=== PATIENT | female | born 1995 | race Caucasian/White ===

== ENCOUNTER 2023-10-31 22:39 | Emergency (ER) | payer OTHER, SELFPAY ==
--- NOTE | 2023-10-31 22:44 | ED.GENADULT ---
HPI - General Adult General Chief complaint: Abdominal Pain Stated complaint: Pelvic and lower back pain Time Seen by Provider: 10/31/23 22:41 Source: patient, RN notes reviewed and old records reviewed Mode of arrival: Ambulatory Limitations: no limitations History of Present Illness HPI narrative: This is a 28-year-old female with history of anxiety, depression, diabetes type 2, migraines, PCOS, endometriosis, prior kidney stones who presents with complaint of dysuria, sense of urgency and frequency with incomplete emptying, lower abdominal pain and bilateral flank pain right greater than left. Patient states she started having chills nausea vomiting earlier in the day. She is developed increased abdominal discomfort dysuria, urgency and frequency. She notes a little bit of discharge but states no vaginal bleeding. She states she has not had much in the way of bowel movements. Patient states she was able to eat some food today. No reported fevers but has felt hot and cold intermittently. No chest pain or shortness breath. Patient's home medications include Lexapro, hydroxyzine, metformin, , amitriptyline. She is allergic to Latuda and nickel. Surgeries include prior wisdom tooth extraction and right ovarian cyst removal. Does use tobacco, vapes, drinks alcohol few times a month, no recreational drugs. Primary care is at the [facility] on [facility]. She is accompanied by her spouse. Related Data Previous Rx's Medication Instructions Recorded cefixime 400 mg capsule 400 mg PO DAILY 10 days #10 caps 11/01/23 Allergies Allergy/AdvReac Type Severity Reaction Status Date / Time lurasidone [From Latuda] Allergy Hives Verified 10/31/23 22:50 nickel Allergy Verified 10/31/23 22:50 Review of Systems Review of Systems ROS Unobtainable: All systems reviewed & are unremarkable except as noted in HPI and below Patient History Social History Smoking Status: Current every day smoker Exam Narrative Exam Narrative: GENERAL: Alert and oriented x three, mild distress. HEENT: Head normocephalic, atraumatic, EOMI, pupils reactive, face symmetric, moist mucous membranes NECK: Supple, full range of motion CARDIOVASCULAR: Regular rate and rhythm without murmurs, rubs or gallops. RESPIRATORY: Breath sounds equal bilaterally, no wheezes rales or rhonchi. ABDOMEN: Soft, generalized tenderness. Normoactive bowel sounds all 4 quadrants. No guarding or rebound, rigidity, no mass : Bilateral CVA tenderness EXTREMITIES: Normal range of motion, no clubbing or edema. Neurovascularly intact NEUROLOGICAL: Cranial nerves II through XII grossly intact. Moving all extremities SKIN: Warm, dry, no petechiae, no rashes or lesions. Initial Vital Signs Initial Vital Signs: Vital Signs Temperature 97.5 F L 10/31/23 22:50 Pulse Rate 74 10/31/23 22:50 Respiratory Rate 16 10/31/23 22:50 Blood Pressure 132/61 10/31/23 22:50 Pulse Oximetry 99 10/31/23 22:50 Oxygen Delivery Method Room Air 10/31/23 22:50 Course Orders Ordered: ED Orders 10/31/23 22:50 Urine Culture Stat Urine Microscopic Stat 10/31/23 23:05 Complete Blood Count AUTO DIFF Stat Comprehensive Metabolic Panel Stat Lipase Stat 10/31/23 23:15 US renal complete Stat Discontinued Medications Sodium Chloride (Normal Saline 0.9%) 1,000 mls @ 1,000 mls/hr IV BOLUS ONE Stop: 10/31/23 23:55 Last Infusion: 11/01/23 00:08 Dose: Infused Documented By: Admin: 10/31/23 23:02 Dose: 1,000 mls/hr Documented By: JAMAL Ceftriaxone Sodium 1,000 mg/ (Sodium Chloride) 100 mls @ 200 mls/hr IV NOW ONE Stop: 10/31/23 23:51 Last Admin: 11/01/23 00:12 Dose: 200 mls/hr Documented By: Ondansetron HCl (Ondansetron 4 Mg/2 Ml Inj) 4 mg IV NOW ONE Stop: 10/31/23 22:57 Last Admin: 10/31/23 23:02 Dose: 4 mg Documented By: JAMAL Vital Signs Vital signs: Vital Signs - 8 hr 10/31/23 22:50 10/31/23 22:55 11/01/23 00:46 Temperature 97.5 F L Pulse Rate 74 75 76 Respiratory Rate 16 18 14 Blood Pressure 132/61 Pulse Oximetry 99 100 97 Oxygen Delivery Method Room Air Room Air 11/01/23 00:47 11/01/23 00:47 Temperature Pulse Rate 82 Respiratory Rate Blood Pressure 109/57 L Pulse Oximetry 98 Oxygen Delivery Method Room Air Medical Decision Making Lab Data 10/31/23 23:05 10/31/23 23:05 Labs: Lab Results 10/31/23 10/31/23 Range/Units 22:50 23:05 WBC 7.9 (4.5-11.0) X10^3/uL RBC 4.05 (4.0-5.2) X10^6/uL Hgb 12.3 (12.0-16.0) g/dL Hct 35.6 L (36-46) % MCV 88.0 (80-100) fL MCH 30.3 (26-34) PG MCHC 34.4 (30-36) % RDW 13.8 (11.6-14.8) % Plt Count 215 (150-400) X10^3/uL Neut % (Auto) 37.2 L (50-75) % Lymph % (Auto) 51.0 H (25-40) % Mitchell % (Auto) 5.4 (3-14) % Eos % (Auto) 5.9 H (2-4) % Baso % (Auto) 0.5 (0-2) % Neut # (Auto) 3000 (4269-8358) /uL Lymph # (Auto) 4000 (3045-9010) /uL Mitchell # (Auto) 400 (0-900) /uL Eos # (Auto) 500 H (0-450) /uL Baso # (Auto) 0 (0-100) /uL Sodium 138 (137-145) mmol/L Potassium 3.7 (3.4-5.1) mmol/L Chloride 107 (98-107) mmol/L Carbon Dioxide 26 (22-32) mmol/L BUN 8 (7-17) mg/dL Creatinine 0.60 (0.52-1.04) mg/dL Estimated GFR > 60 (>60) mL/min BUN/Creatinine Ratio 13.3 (6-22) Glucose 139 H (70-100) mg/dL Calcium 8.9 (8.4-10.2) mg/dL Total Bilirubin 0.2 (0.2-1.3) mg/dL AST 21 (14-36) IU/L ALT 24 (<35) IU/L Alkaline Phosphatase 54 (38-126) U/L Total Protein 7.1 (6.3-8.2) g/dL Albumin 4.0 (3.5-5.0) g/dL Globulin 3.1 (1.7-4.1) g/dL Albumin/Globulin Ratio 1.3 (1.0-2.8) Lipase 83 (23-300) U/L Urine RBC 0-1/hpf (0-5/HPF) Urine WBC 10-30/hpf H (0-5/HPF) Ur Squamous Epith Cells 5-10 /hpf H (0-5/HPF) Urine Bacteria Moderate (10-30) H (None) Urine Mucus 2+ H (Negative) Ur Culture Indicated? Specimen cultured Vol Urine Centrifuged 10ml (spun) Point of Care Testing Test Results Negative Urine Dip Bedside Urine Glucose Negative Bedside Urine Bilirubin - Negative Bedside Urine Ketone +/- 5 Urine Specific [place] 1.025 Bedside Urine Occult Blood - Negative Bedside Urine pH 6 Bedside Urine Protein - Negative Bedside Urine Urobilinogen - Negative Bedside Urine Nitrite - Negative Bedside Urine Leukocytes +/- 15 Esterase Point of care testing: Point of Care Testing Test Results Negative Urine Dip Bedside Urine Glucose Negative Bedside Urine Bilirubin - Negative Bedside Urine Ketone +/- 5 Urine Specific [place] 1.025 Bedside Urine Occult Blood - Negative Bedside Urine pH 6 Bedside Urine Protein - Negative Bedside Urine Urobilinogen - Negative Bedside Urine Nitrite - Negative Bedside Urine Leukocytes +/- 15 Esterase Imaging Data renal US: Radiologist's Impression: Close Renal Ultrasound (Signed) [place],Adamaris - 10/31/23 [address]?[place] [address] Ultrasound Report Signed Patient: Ysabel Bañuelos MR#: [id number] : 1995 Acct:[id number] Age/Sex: 28 / F Date of Service: 10/31/23 Loc: ED Accession Number: [id number] Procedure: US renal complete Ordering Provider: Emily Reynolds D.O. PROCEDURE: US RENAL COMPLETE INDICATIONS: urinary symptoms/flank pain, suspect pyelo, hx of kidney sto TECHNIQUE: Real-time scanning was performed of the kidneys and bladder, with image documentation. COMPARISON: None. FINDINGS: Kidneys: Kidneys are normal in size. Right kidney measures 10.6 cm long; left kidney measures 10.5 cm long. Right renal cortical thickness is 2.2 cm; left renal cortical thickness is 1.4 cm. Renal cortical echotexture is normal. No hydronephrosis or nephrolithiasis. No suspicious solid mass lesions. Bladder: Pre-void bladder volume is 24 mL. Post-void residual is 0 mL. Pre-void images demonstrate no intraluminal masses or stones. On pre-void images, bilateral ureteral jets are noted with color Doppler interrogation. (Of note, ureteral jets may not be detectable in up to 25% of cases due to insufficient differences in specific gravity between ureteral and bladder urine). Miscellaneous: No free pelvic fluid. IMPRESSION: No hydronephrosis or nephrolithiasis. Postvoid residual volume of 0 cc. Bilateral ureteral jets visualized. Approved by: Adamaris Hills M.D.,Ph.D. on 11/01/2023 at 0:25 MDM Narrative Medical decision making narrative: Patient [place] report viewed. Labs white count of 7.9 hemoglobin of 12.3 platelets of 215. Chemistries sodium 138 potassium 3 7 chloride of 107 CO2 26 BUN 8 and creatinine 0.6, glucose is 139 LFTs are normal range negative lipase. Urine is negative. Microscopy shows 0-1 RBCs 10-30 WBCs 5-10 squamous moderate bacteria 2+ mucus specimen sent for culture Patient received fluids and Zofran. She defers any pain medication. After discussion patient's symptoms seem consistent with likely UTI/pyelonephritis, she has had kidney stones in the past but has been blood. After discussion we will obtain renal ultrasound to rule out hydro. Ultrasound shows no hydro or nephrolithiasis, bilateral ureteral jets visualized, no pelvic free fluid. Patient received fluids, Zofran and Rocephin, patient states she feels improved discussed suspect likely pyelonephritis. We will continue with cefixime daily. Patient states she has Zofran at home. Discussed return precautions. Discharge Plan Departure Patient Disposition: Home Clinical Impression: Pyelonephritis Instructions: Kidney Infection Activity Restrictions/Additional Instructions: Follow up for recheck if your symptoms are not improving in the next 1-2 days. Take antibiotics until completed. You may take zofran 1 tablet every 6 hours as needed for nausea/vomiting. Prescription sent to [facility]. Please return for fevers, new or worsening abdominal back or flank pain, persistent vomiting, black or bloody stools or other new or concerning changes. Prescriptions: New cefixime 400 mg capsule 400 mg PO DAILY 10 Days Qty: 10 0RF Referrals: ProviderBryant [Primary Care Provider] - Stand Alone Forms: Patient Portal/API
[2023-10-31 22:50] VITALS: BP 132/61; PULSE 74; RESP 16; TEMP 36.4; O2SAT 99; BMI 32.2
[2023-10-31 22:55] VITALS: PULSE 75; RESP 18; O2SAT 100
[2023-10-31] MEDS: ONDANSETRON 4 MG/2 ML INJ IV (23:02)
[2023-10-31] MEDS: SODIUM CHLORIDE 0.9% 1,000 ML 1000 ML IV (23:02)
[2023-10-31 23:05] LABS: Bacteria Urine Moderate (10-30); Culture Indicated Urine Specimen Cultured; Mucus Urine 2+ (Negative); RBC Urine 0-1/HPF (0-5/HPF); Squamous Epithelial Cell Urine 5-10 /HPF (0-5/HPF); Urine Volume 10mL (spun); WBC Urine 10-30/HPF (0-5/HPF)
[2023-10-31 23:15] LABS: Add Manual Diff / Slide Review NO; Basophils Absolute Auto 0 /uL (0-100); Basophils Percent Auto 0.5 % (0-2); Eosinophils Absolute Auto 500 /uL (0-450); Eosinophils Percent Auto 5.9 % (2-4); Hematocrit 35.6 % (36-46); Hemoglobin 12.3 g/dL (12.0-16.0); Lymphocytes Absolute Auto 4000 /uL (1100-4500); Mean Corpuscular HGB Conc 34.4 % (30-36); Mean Corpuscular Hemoglobin 30.3 PG (26-34); Monocytes Absolute Auto 400 /uL (0-900); Monocytes Percent Auto 5.4 % (3-14); Neutrophils Absolute Auto 3000 /uL (1500-7000); Neutrophils Percent Auto 37.2 % (50-75); Platelet Count 215 X10^3/uL (150-400); Red Blood Cell Count 4.05 X10^6/uL (4.0-5.2); Red Cell Distribution Width 13.8 % (11.6-14.8); White Blood Cell Count 7.9 X10^3/uL (4.5-11.0)
--- NOTE | 2023-10-31 23:15 | DI.US.S_ITS ---
PROCEDURE: US RENAL COMPLETE INDICATIONS: urinary symptoms/flank pain, suspect pyelo, hx of kidney sto TECHNIQUE: Real-time scanning was performed of the kidneys and bladder, with image documentation. COMPARISON: None. FINDINGS: Kidneys: Kidneys are normal in size. Right kidney measures 10.6 cm long; left kidney measures 10.5 cm long. Right renal cortical thickness is 2.2 cm; left renal cortical thickness is 1.4 cm. Renal cortical echotexture is normal. No hydronephrosis or nephrolithiasis. No suspicious solid mass lesions. Bladder: Pre-void bladder volume is 24 mL. Post-void residual is 0 mL. Pre-void images demonstrate no intraluminal masses or stones. On pre-void images, bilateral ureteral jets are noted with color Doppler interrogation. (Of note, ureteral jets may not be detectable in up to 25% of cases due to insufficient differences in specific gravity between ureteral and bladder urine). Miscellaneous: No free pelvic fluid. IMPRESSION: No hydronephrosis or nephrolithiasis. Postvoid residual volume of 0 cc. Bilateral ureteral jets visualized. Approved by: Adamaris Hills M.D.,Ph.D. on 11/01/2023 at 0:25
[2023-10-31 23:25] LABS: Alanine Aminotransferase 24 IU/L (<35); Albumin Globulin Ratio 1.3 (1.0-2.8); Alkaline Phosphatase 54 U/L (38-126); Aspartate Aminotransferase 21 IU/L (14-36); BUN Creatinine Ratio 13.3 (6-22); Bilirubin Total 0.2 mg/dL (0.2-1.3); Blood Urea Nitrogen 8 mg/dL (7-17); Calcium 8.9 mg/dL (8.4-10.2); Carbon Dioxide 26 mmol/L (22-32); Chloride 107 mmol/L (98-107); Estimated Glomerular Filt Rate > 60 mL/min (>60); Globulin 3.1 g/dL (1.7-4.1); Glucose 139 mg/dL (70-100); HEMOLYSIS < 15 (0-50); Lipase 83 U/L (23-300); Potassium 3.7 mmol/L (3.4-5.1); Sodium 138 mmol/L (137-145); Total Protein 7.1 g/dL (6.3-8.2)
[2023-11-01] MEDS: cefTRIAXone 1,000 MG in SODIUM CHLORIDE 0.9% 100 ML 200 MG IV (00:12)
[2023-11-01 00:46] VITALS: PULSE 76; RESP 14; O2SAT 97
[2023-11-01 00:47] VITALS: BP 109/57; PULSE 82; O2SAT 98
== END 2023-11-01 00:53 | disposition home or self-care (01) ==
PROVIDERS: Emergency Provider Emergency Medicine
DX: N12 Tubulo-interstitial nephritis, not specified as acute or chronic (principal)
CPT/HCPCS: 76770; 80053; 81003; 81015; 81025; 83690; 85025; 87086; 96361; 96365; 96375; 99284; J0696; J2405

== ENCOUNTER 2023-11-12 23:43 | Emergency (ER) | payer OTHER, SELFPAY ==
[2023-11-12 23:56] VITALS: BP 117/78; PULSE 98; RESP 19; TEMP 36.4; O2SAT 100; BMI 32.8
--- NOTE | 2023-11-13 01:00 | PC.NURSE ---
pt c/o a boil to the side of her vagina, was seen at [facility] for the same and placed on antibiotics, pt c/o she has not been able to sit down d/t the pain, has been taking hot baths without relief
--- NOTE | 2023-11-13 01:36 | ED.SKABFB ---
HPI - Skin/Abscess/Foreign Bdy General Chief complaint: Skin/Abscess/Foreign Body Stated complaint: Perrenial cyst, very painful Time Seen by Provider: 11/13/23 00:33 Source: patient Mode of arrival: Ambulatory Limitations: no limitations History of Present Illness HPI narrative: 28-year-old female presents for evaluation an abscess in her vaginal region. Seen at [facility] 48 hours ago for same. Per record review it was believed that patient had a small Bartholin abscess, but she declined I and D and was sent home on Augmentin. She states it has become more painful and she can not even sit down without severe pain Related Data Previous Rx's Medication Instructions Recorded hydrocodone 5 mg-acetaminophen 325 1 tab PO Q8H PRN pain #7 tabs 11/13/23 mg tablet sulfamethoxazole 800 1 tab PO Q12H #14 tabs 11/13/23 mg-trimethoprim 160 mg tablet (Bactrim DS) Allergies Allergy/AdvReac Type Severity Reaction Status Date / Time lurasidone [From Latuda] Allergy Hives Verified 10/31/23 22:50 nickel Allergy Verified 10/31/23 22:50 Review of Systems Review of Systems Narrative: Negative except as noted above Patient History Social History Smoking Status: Current every day smoker Smoking Status: Current every day smoker tobacco type: vaping alcohol intake frequency: a few times a month Substance Use Type: does not use Exam Initial Vital Signs Initial Vital Signs: Vital Signs Temperature 97.6 F 11/12/23 23:56 Pulse Rate 98 H 11/12/23 23:56 Respiratory Rate 19 11/12/23 23:56 Blood Pressure 117/78 11/12/23 23:56 Pulse Oximetry 100 11/12/23 23:56 Oxygen Delivery Method Room Air 11/12/23 23:56 Const: Awake, alert, no acute distress, nontoxic appearing : [employer] present, draining Bartholin gland abscess at 5:00 position Skin: Warm, Dry, intact, no rashes Neuro: AO x3, CN II-XII grossly intact, moves all extremities Course Orders Ordered: Discontinued Medications Hydrocodone Bitart/Acetaminophen (Hydrocodone/Acet 5/325 Prepack) 1 bottle MISC DIRECTED ONE Stop: 11/13/23 01:37 Last Admin: 11/13/23 01:41 Dose: 1 bottle Vital Signs Vital signs: Vital Signs - 8 hr 11/12/23 23:56 Temperature 97.6 F Pulse Rate 98 H Respiratory Rate 19 Blood Pressure 117/78 Pulse Oximetry 100 Oxygen Delivery Method Room Air MDM - Skin/Abscess/Foreign Bdy Differential Diagnosis Differential diagnosis: Likely abscess of skin or subcutaneous tissue, urticaria and cellulitis MDM Narrative Medical decision making narrative: Bartholin gland abscess, appears to already be rupturing. Offered to perform formal I and D, however patient declined stating that she did not want any injections and would continue to do warm compresses at home. Patient was already on Augmentin, added Bactrim for additional coverage. Pain medication sent to pharmacy of choice. Discharge Plan Departure Patient Disposition: Home Clinical Impression: Abscess of Bartholin's gland Instructions: DI for Bartholin Gland Cyst Activity Restrictions/Additional Instructions: It appears as though your Bartholin abscess has ruptured spontaneously. Continue to do warm compresses and continue to take your antibiotics as prescribed. I will be adding 1 extra antibiotic to your regimen for full coverage. If it becomes more painful or stops draining you will need to have it Re looked at. You did not want me to incise this area today, but if it was not completely drain it may eventually need drainage. Please follow up with your primary care doctor or OBGYN. Prescriptions: New hydrocodone-acetaminophen 5-325 mg tablet 1 tab PO Q8H PRN (Reason: pain) Qty: 7 0RF sulfamethoxazole-trimethoprim [Bactrim DS] 800-160 mg tablet 1 tab PO Q12H Qty: 14 0RF Referrals: ProviderBryant [Primary Care Provider] - Stand Alone Forms: Patient Portal/API
== END 2023-11-13 01:58 | disposition home or self-care (01) ==
PROVIDERS: Emergency Provider Emergency Medicine
DX: N75.1 Abscess of Bartholin's gland (principal)
CPT/HCPCS: 99281

== ENCOUNTER 2023-11-16 20:24 | Emergency (ER) | payer OTHER, SELFPAY ==
[2023-11-16 20:36] VITALS: BP 109/66; PULSE 91; RESP 18; TEMP 36.5; O2SAT 100; BMI 32.5
--- NOTE | 2023-11-16 21:44 | DI.US.S_ITS ---
PROCEDURE: US PELVIC LIMITED INDICATIONS: R pelvic pain TECHNIQUE: Real-time transabdominal scanning was performed of the pelvic organs, with image documentation. COMPARISON: None. FINDINGS: Uterus: Uterus is anteverted and normal in size at 7.5 x 3.9 x 5.8 cm. The myometrium is homogeneous. The endometrium measures 7.9 mm combined thickness. Heterogeneous appearance of the endometrium. Ovaries: The right ovary measures 2.4 x 2.9 x 2.5 cm, with a calculated ovarian volume of 9.3 cc. Collapsing simple cyst within the right ovary measuring 1.8 cm. The left ovary measures 1.0 x 2.3 x 1.3 cm, with a calculated ovarian volume of 1.8 cc. The ovaries have a normal sonographic appearance. Less than 12 follicles can be seen in each ovary. No adnexal masses are seen. Other: No pathologic free abdominal or pelvic fluid. IMPRESSION: Normal vascularity to the ovaries. No evidence of torsion. Collapsing right ovarian simple cyst measuring 1.8 cm. No acute findings to explain patient's symptoms. We strive to produce accurate, complete, and clear reports of imaging services. To assist us in improving patient care, this report was composed using standard report templates and voice recognition software. Therefore, it may contain abnormal punctuation, insertions and/or omissions. Occasional wrong-word or sound-alike substitutions may occur. Though we review the report and make efforts to correct it, we do recommend that the report be read carefully in proper context to recognize any text inaccuracies. Dictated by: Adonis Recio M.D. on 11/16/2023 at 22:41 Approved by: Adonis Recio M.D. on 11/16/2023 at 22:43
--- NOTE | 2023-11-16 21:48 | ED.ABDPAIN ---
HPI - Abdominal Pain General Chief Complaint: Abdominal Pain Stated Complaint: lower mid abd pain Time Seen by Provider: 11/16/23 20:54 Mode of arrival: Ambulatory History of Present Illness HPI narrative: 28-year-old female with history of endometriosis, PCOS presents for right-sided pelvic pain. Pain is similar to ruptured cyst in the past, but slightly different. She states it was like a twisting, grinding pain with associated nausea. No medications taken at home prior to arrival. Patient is seen recently in our emergency department as well as [facility] for a Bartholin gland cyst. Patient states that the cyst has ruptured and is now resolved Related Data Previous Rx's Medication Instructions Recorded hydrocodone 5 mg-acetaminophen 325 1 tab PO Q8H PRN pain #7 tabs 11/13/23 mg tablet sulfamethoxazole 800 1 tab PO Q12H #14 tabs 11/13/23 mg-trimethoprim 160 mg tablet (Bactrim DS) Allergies Allergy/AdvReac Type Severity Reaction Status Date / Time hydrocodone Allergy Verified 11/16/23 20:36 lurasidone [From Latuda] Allergy Hives Verified 10/31/23 22:50 nickel Allergy Verified 10/31/23 22:50 Review of Systems Review of Systems Narrative: See HPI Patient History Social History Smoking Status: Current every day smoker Smoking Status: Current every day smoker tobacco type: vaping alcohol intake frequency: a few times a month Substance Use Type: former substance user Exam Initial Vital Signs Initial Vital Signs: Vital Signs Temperature 97.7 F 11/16/23 20:36 Pulse Rate 91 H 11/16/23 20:36 Respiratory Rate 18 11/16/23 20:36 Blood Pressure 109/66 11/16/23 20:36 Pulse Oximetry 100 11/16/23 20:36 Oxygen Delivery Method Room Air 11/16/23 20:36 Const: Awake, alert, no acute distress, nontoxic appearing GI: Soft, minimal tenderness to deep palpation in lower pelvic region on the right-hand side Skin: Warm, Dry, intact, no rashes Neuro: AO x3, CN II-XII grossly intact, moves all extremities Course Orders Ordered: ED Orders 11/16/23 21:44 US pelvic complete Stat 11/16/23 21:55 CBC Auto Diff [Complete Blood Count AUTO DIFF] Stat CMP [Comprehensive Metabolic Panel] Stat Discontinued Medications Ketorolac Tromethamine (Ketorolac 30 Mg/Ml Vial) 15 mg IV NOW ONE Stop: 11/16/23 21:45 Last Admin: 11/16/23 22:04 Dose: 15 mg Documented By: [facility]CA Metoclopramide HCl (Metoclopramide 10 Mg/2 Ml Inj) 10 mg IV NOW ONE Stop: 11/16/23 21:48 Ondansetron HCl (Ondansetron 4 Mg/2 Ml Inj) 4 mg IV NOW PRN PRN Reason: Nausea And Vomiting Ondansetron HCl (Ondansetron 4 Mg Odt) 4 mg SL NOW PRN PRN Reason: Nausea And Vomiting Vital Signs Vital signs: Vital Signs - 8 hr 11/16/23 20:36 11/16/23 23:06 Temperature 97.7 F Pulse Rate 91 H 78 Respiratory Rate 18 18 Blood Pressure 109/66 113/71 Pulse Oximetry 100 98 Oxygen Delivery Method Room Air Room Air MDM - Abdominal Pain Differential Diagnosis Differential diagnosis: Likely abdominal pain, endometriosis and gastroenteritis Lab Data 11/16/23 21:55 11/16/23 21:55 Labs: Lab Results 11/16/23 Range/Units 21:55 WBC 7.5 (4.5-11.0) X10^3/uL RBC 4.14 (4.0-5.2) X10^6/uL Hgb 12.3 (12.0-16.0) g/dL Hct 36.4 (36-46) % MCV 87.8 (80-100) fL MCH 29.6 (26-34) PG MCHC 33.7 (30-36) % RDW 13.5 (11.6-14.8) % Plt Count 207 (150-400) X10^3/uL Neut % (Auto) 45.9 L (50-75) % Lymph % (Auto) 45.4 H (25-40) % [place] % (Auto) 4.8 (3-14) % Eos % (Auto) 3.3 (2-4) % Baso % (Auto) 0.6 (0-2) % Neut # (Auto) 3500 (6162-5657) /uL Lymph # (Auto) 3400 (4572-9798) /uL [place] # (Auto) 400 (0-900) /uL Eos # (Auto) 200 (0-450) /uL Baso # (Auto) 0 (0-100) /uL Sodium 139 (137-145) mmol/L Potassium 3.4 (3.4-5.1) mmol/L Chloride 108 H (98-107) mmol/L Carbon Dioxide 25 (22-32) mmol/L BUN 10 (7-17) mg/dL Creatinine 0.63 (0.52-1.04) mg/dL Estimated GFR > 60 (>60) mL/min BUN/Creatinine Ratio 15.9 (6-22) Glucose 113 H (70-100) mg/dL Calcium 8.9 (8.4-10.2) mg/dL Total Bilirubin 0.3 (0.2-1.3) mg/dL AST 29 (14-36) IU/L ALT 34 (<35) IU/L Alkaline Phosphatase 60 (38-126) U/L Total Protein 7.1 (6.3-8.2) g/dL Albumin 4.5 (3.5-5.0) g/dL Globulin 2.6 (1.7-4.1) g/dL Albumin/Globulin Ratio 1.7 (1.0-2.8) Point of care testing: Point of Care Testing Test Results Negative Urine Dip Bedside Urine Glucose Negative Bedside Urine Bilirubin - Negative Bedside Urine Ketone - Negative Urine Specific [place] 1.02 Bedside Urine Occult Blood - Negative Bedside Urine pH 7 Bedside Urine Protein - Negative Bedside Urine Urobilinogen - Negative Bedside Urine Nitrite - Negative Bedside Urine Leukocytes - Negative Esterase Imaging Data US - CLIENT ACCOUNT MANAGER: Radiologist's Impression: PROCEDURE: US PELVIC LIMITED INDICATIONS: R pelvic pain TECHNIQUE: Real-time transabdominal scanning was performed of the pelvic organs, with image documentation. COMPARISON: None. FINDINGS: Uterus: Uterus is anteverted and normal in size at 7.5 x 3.9 x 5.8 cm. The myometrium is homogeneous. The endometrium measures 7.9 mm combined thickness. Heterogeneous appearance of the endometrium. Ovaries: The right ovary measures 2.4 x 2.9 x 2.5 cm, with a calculated ovarian volume of 9.3 cc. Collapsing simple cyst within the right ovary measuring 1.8 cm. The left ovary measures 1.0 x 2.3 x 1.3 cm, with a calculated ovarian volume of 1.8 cc. The ovaries have a normal sonographic appearance. Less than 12 follicles can be seen in each ovary. No adnexal masses are seen. Other: No pathologic free abdominal or pelvic fluid. IMPRESSION: Normal vascularity to the ovaries. No evidence of torsion. Collapsing right ovarian simple cyst measuring 1.8 cm. No acute findings to explain patient's symptoms. We strive to produce accurate, complete, and clear reports of imaging services. To assist us in improving patient care, this report was composed using standard report templates and voice recognition software. Therefore, it may contain abnormal punctuation, insertions and/or omissions. Occasional wrong-word or sound-alike substitutions may occur. Though we review the report and make efforts to correct it, we do recommend that the report be read carefully in proper context to recognize any text inaccuracies. Dictated by: Adonis Recio M.D. on 11/16/2023 at 22:41 Approved by: Adonis Recio M.D. on 11/16/2023 at 22:43 MDM Narrative Medical decision making narrative: Nontoxic patient with right lower pelvic pain. JENI form reports numerous visits at other sites for abdominal and pelvic pain. Abdomen is soft, no peritoneal signs, patient was not even attempted [id number] therapy before coming to the emergency department. Laboratory work and ultrasound imaging ordered. Toradol ordered for pain. Laboratory work is reviewed, no leukocytosis, no left shift, normal hemoglobin, normal creatinine, normal electrolytes, normal hepatic function. Urinalysis negative for signs of infection. Pelvic ultrasound shows a collapsing ovarian simple cyst but no other findings to explain patient's symptoms. Patient counseled on lab and imaging findings, recommended close OBGYN follow up. Patient states that she has a scheduled OBGYN appointment coming up within the next few weeks. Discharge Plan Departure Patient Disposition: Home Clinical Impression: Pelvic pain Instructions: DI for Pelvic Pain Activity Restrictions/Additional Instructions: Your ultrasound today showed a deflated right ovarian cyst. No other acute findings are present on your scans or on your labs. Take Tylenol and Motrin at home. Please follow up with OBGYN if you continue to experience pelvic pain Prescriptions: No Action hydrocodone-acetaminophen 5-325 mg tablet 1 tab PO Q8H PRN (Reason: pain) Qty: 7 0RF sulfamethoxazole-trimethoprim [Bactrim DS] 800-160 mg tablet 1 tab PO Q12H Qty: 14 0RF Referrals: Provider,Bryant CESAR [Primary Care Provider] - Stand Alone Forms: Patient Portal/API
[2023-11-16] MEDS: KETOROLAC 30 MG/ML VIAL 15 MG IV (22:04)
[2023-11-16 22:06] LABS: Add Manual Diff / Slide Review NO; Basophils Absolute Auto 0 /uL (0-100); Basophils Percent Auto 0.6 % (0-2); Eosinophils Absolute Auto 200 /uL (0-450); Eosinophils Percent Auto 3.3 % (2-4); Hematocrit 36.4 % (36-46); Hemoglobin 12.3 g/dL (12.0-16.0); Lymphocytes Absolute Auto 3400 /uL (1100-4500); Lymphocytes Percent Auto 45.4 % (25-40); Mean Corpuscular HGB Conc 33.7 % (30-36); Mean Corpuscular Hemoglobin 29.6 PG (26-34); Mean Corpuscular Volume 87.8 fL (80-100); Monocytes Absolute Auto 400 /uL (0-900); Monocytes Percent Auto 4.8 % (3-14); Neutrophils Absolute Auto 3500 /uL (1500-7000); Neutrophils Percent Auto 45.9 % (50-75); Platelet Count 207 X10^3/uL (150-400); Red Blood Cell Count 4.14 X10^6/uL (4.0-5.2); Red Cell Distribution Width 13.5 % (11.6-14.8); White Blood Cell Count 7.5 X10^3/uL (4.5-11.0)
[2023-11-16 22:15] LABS: Alanine Aminotransferase 34 IU/L (<35); Albumin 4.5 g/dL (3.5-5.0); Albumin Globulin Ratio 1.7 (1.0-2.8); Alkaline Phosphatase 60 U/L (38-126); Aspartate Aminotransferase 29 IU/L (14-36); BUN Creatinine Ratio 15.9 (6-22); Bilirubin Total 0.3 mg/dL (0.2-1.3); Blood Urea Nitrogen 10 mg/dL (7-17); Calcium 8.9 mg/dL (8.4-10.2); Carbon Dioxide 25 mmol/L (22-32); Chloride 108 mmol/L (98-107); Estimated Glomerular Filt Rate > 60 mL/min (>60); Globulin 2.6 g/dL (1.7-4.1); Glucose 113 mg/dL (70-100); HEMOLYSIS < 15 (0-50); Potassium 3.4 mmol/L (3.4-5.1); Sodium 139 mmol/L (137-145); Total Protein 7.1 g/dL (6.3-8.2)
[2023-11-16 23:06] VITALS: BP 113/71; PULSE 78; RESP 18; O2SAT 98
== END 2023-11-16 23:12 | disposition home or self-care (01) ==
PROVIDERS: Emergency Provider Emergency Medicine
DX: R10.2 Pelvic and perineal pain (principal)
CPT/HCPCS: 36415; 76830; 76856; 80053; 81003; 81025; 85025; 93976; 96374; 99284; J1885

== ENCOUNTER 2023-11-30 15:24 | Emergency (ER) | payer OTHER, SELFPAY ==
[2023-11-30] VITALS (9 sets, daily range): BP systolic 106–128; BP diastolic 58–73; PULSE 107–121; RESP 16–18; TEMP 37; O2SAT 95–100; BMI 32.2
--- NOTE | 2023-11-30 16:20 | DI.CT.S_ITS ---
PROCEDURE: CT ABDOMEN PELVIS W CON INDICATIONS: lower abd/pelvic pain TECHNIQUE: After the administration of intravenous contrast, axial sections acquired from the lung bases to the pubic symphysis. Coronal and sagittal reformats were performed. For radiation dose reduction, the following was used: automated exposure control, adjustment of mA and/or kV according to patient size. COMPARISON: None. FINDINGS: Image quality: Diagnostic. Lower Chest: No significant findings. ABDOMEN: Liver: No solid mass. Diffuse fatty liver infiltration is noted. Gallbladder: No radiopaque gallstones or wall thickening. Biliary ducts: No biliary dilation. Pancreas: No ductal dilation. Spleen: The spleen is mildly enlarged, measuring 13.5 cm in greatest axial dimension. Adrenal Glands: No adrenal nodules. Kidneys and Ureters: No hydronephrosis. No solid mass. No complex renal cystic lesion which requires follow up. Stomach and Bowel: Normal colonic caliber, without significant wall thickening. A normal appendix is seen. No focal right lower quadrant inflammatory change is seen. Peritoneum: No abnormal intraperitoneal fluid. No free air. Ventral Wall: No significant ventral hernia. Abdominal Nodes: No retroperitoneal or mesenteric adenopathy by size criteria. Vessels: Aorta and inferior vena cava are normal in size. PELVIS: Pelvic Organs: The uterus appears normal. Cystic changes are seen of the ovaries, which are considered to be within physiologic limits. Bladder: No bladder wall thickening, accounting for underdistention. Pelvic Nodes: No enlarged lymph nodes. Miscellaneous: No inguinal hernias are seen. Bones: No aggressive osseous abnormality. IMPRESSION: No imaging explanation is found for this patient's presenting symptoms. Normal appendix. Cystic changes are seen of the ovaries, which appear physiologic. Additional findings: Fatty liver infiltration Mild splenomegaly Dictated by: Bib Flores M.D. on 11/30/2023 at 18:23 Approved by: Bib Flores M.D. on 11/30/2023 at 18:25
--- NOTE | 2023-11-30 16:21 | DI.US.S_ITS ---
PROCEDURE: US PELVIC COMPLETE INDICATIONS: lower abd/pelvic pain TECHNIQUE: Real-time scanning was performed of the pelvic organs, with image documentation. Additional endovaginal scanning was necessary due to incomplete visualization of the adnexal and endometrial structures by transabdominal scanning. COMPARISON: [facility], US, US PELVIC COMPLETE, 11/16/2023, 22:22. FINDINGS: Uterus: Uterus is anteverted and normal in size at 8.0 x 4.3 x 4.9 cm. The myometrium is homogeneous. The endometrium measures 10 mm combined thickness. The endometrium is heterogeneous with several cystic spaces. No discrete endometrial mass. Ovaries: The right ovary measures 3.0 x 1.9 x 2.1 cm, with a calculated ovarian volume of 6.1 cc. The left ovary measures 3.8 x 3.8 x 3.0 cm, with a calculated ovarian volume of 24.3 cc. The ovaries have a normal sonographic appearance. There is a dominant follicle within each ovary, the larger on the left measures up to 2.5 cm. There is appropriate vascular flow in each ovary. No adnexal masses are seen. Other: No pathologic free abdominal or pelvic fluid. IMPRESSION: Normal size uterus with cystic endometrial changes, uncertain etiology given the patient's age. Consider follow-up ultrasound in 4-6 weeks at a different point in the patient's menstrual cycle. No explanation for acute abdominal pain. We strive to produce accurate, complete, and clear reports of imaging services. To assist us in improving patient care, this report was composed using standard report templates and voice recognition software. Therefore, it may contain abnormal punctuation, insertions and/or omissions. Occasional wrong-word or sound-alike substitutions may occur. Though we review the report and make efforts to correct it, we do recommend that the report be read carefully in proper context to recognize any text inaccuracies. Dictated by: Manisha Turner M.D. on 11/30/2023 at 17:36 Approved by: Manisha Turner M.D. on 11/30/2023 at 17:38
--- NOTE | 2023-11-30 17:04 | ED_ITS ---
HPI - Abdominal Pain <Alcira Mathis PA-C - Last Filed: 11/30/23 19:27> General Chief Complaint: Abdominal Pain Stated Complaint: PCOS vaginal bleeding, fever Time Seen by Provider: 11/30/23 16:02 Source: patient Mode of arrival: Wheelchair History of Present Illness HPI narrative: 28-year-old female with past medical history anxiety, depression, type 2 diabetes, migraines, PCOS, endometriosis, urolithiasis, seizures presents to the ED with 2 days of lower abdominal pain. Patient states that her abdominal pain started last night, got quite intense this morning. Patient was seen at a fertility clinic this morning for a consultation, was sent to the ED due to the abdominal pain. Patient has not yet had any fertility treatments. Patient endorses 10/10 lower abdominal pain, with nausea and 1 episode of vomiting. Patient endorses a subjective fever. Patient endorses frequent urination, no dysuria. Patient has had a history of ovarian cysts, had a cystectomy a few years ago. Patient reports that she saw some light vaginal spotting this morning. Patient last had a miscarriage of 2023. Patient has had multiple miscarriages. Patient also endorses daily seizures, had a seizure yesterday night. Patient is not on any anticonvulsants, is being currently evaluated and treated by a neurologist, states that he has mentioned that she might have pseudoseizures. She states that it is unclear the nature of her seizures. Patient's described her seizures as her moving all extremities, not being awake or responsive during the seizure. Patient does not have any recollection of the seizures. Patient states that her blood sugar has been low since the abdominal pain started. Patient reports a blood sugar of 34 last night. Patient takes metformin for the type 2 diabetes. Related Data Previous Rx's Medication Instructions Recorded hydrocodone 5 mg-acetaminophen 325 1 tab PO Q8H PRN pain #7 tabs 11/13/23 mg tablet sulfamethoxazole 800 1 tab PO Q12H #14 tabs 11/13/23 mg-trimethoprim 160 mg tablet (Bactrim DS) Allergies Allergy/AdvReac Type Severity Reaction Status Date / Time hydrocodone Allergy Verified 11/16/23 20:36 lurasidone [From Latuda] Allergy Hives Verified 10/31/23 22:50 nickel Allergy Verified 10/31/23 22:50 Review of Systems <Alcira Mathis PA-C - Last Filed: 11/30/23 19:27> Constitutional Constitutional: Denies chills, Denies fatigue, Denies fever(s), Denies frequent falls, Denies lethargy and Denies weakness Eyes Eyes: Denies change in vision, Denies eye discharge, Denies irritation and Denies loss of vision ENT Ears, Nose, Mouth, and Throat: Denies change in voice, Denies dizziness, Denies neck pain, Denies sore throat and Denies throat swelling Cardiovascular Cardiovascular: Denies chest pain, Denies irregular heart rhythm, Denies lightheadedness, Denies palpitations, Denies dyspnea, Denies dyspnea on exertion and Denies orthopnea Respiratory Respiratory: Denies cough, Denies dyspnea, Denies dyspnea on exertion and Denies wheezing Gastrointestinal Gastrointestinal: Reports abdominal pain, Denies change in bowel habits, Denies diarrhea, Reports nausea and Reports vomiting Genitourinary Genitourinary: Reports abnormal vaginal bleeding Comments: Urinary frequency Musculoskeletal Musculoskeletal: Denies neck pain and Denies numbness Integumentary/Breasts Skin/Breast: Denies pruritus, Denies erythema, Denies rash and Denies wounds Neurologic Neurologic: Denies behavioral changes, Denies confusion, Denies dizziness, Denies frequent falls, Denies loss of vision, Denies numbness and Denies weakness Psychiatric Psychiatric: Denies anxiety, Denies behavioral changes, Denies confusion, Denies depression, Denies homicidal ideation and Denies suicidal ideation Endocrine Endocrine: Denies fatigue, Denies flushing and Denies palpitations Hematologic/Lymphatic Hematologic/Lymphatic: Denies easy bruising Allergic/Immunologic Allergic/Immunologic: Denies urticaria, Denies throat swelling and Denies wheezing Patient History <Alcira Mathis PA-C - Last Filed: 11/30/23 19:27> Social History Smoking Status: Current every day smoker Smoking Status: Current every day smoker tobacco type: vaping alcohol intake frequency: a few times a month Substance Use Type: former substance user Exam <Alcira Mathis PA-C - Last Filed: 11/30/23 19:27> Narrative Exam Narrative: Const General:?cooperative, healthy appearing and comfortable HENMT Head:?normal to inspection Ears:?hearing grossly normal bilaterally Nose:?external nose normal Face and sinus:?normal facial exam and sinuses nontender Mouth:?oral mucosae normal Throat:?posterior oropharynx normal Eyes General:?appearance normal, both eyes and all related structures Neck Neck:?normal visual inspection and no lymphadenopathy noted Resp Effort & Inspection:?normal respiratory effort Auscultation:?clear to auscultation bilaterally Cardio Rate:?regular rate Rhythm:?regular rhythm GI Abdomen is soft, nondistended. Generalized tenderness to palpation, lower abdomen greater than upper abdomen. Neuro General:?patient alert, patient awake and patient oriented x3 Initial Vital Signs Initial Vital Signs: Vital Signs Temperature 98.6 F 11/30/23 15:28 Pulse Rate 119 H 11/30/23 15:28 Respiratory Rate 18 11/30/23 15:28 Blood Pressure 128/61 11/30/23 15:28 Pulse Oximetry 100 11/30/23 15:28 Oxygen Delivery Method Room Air 11/30/23 15:28 <Marquise Hart DO - Last Filed: 12/01/23 01:11> Initial Vital Signs Initial Vital Signs: Vital Signs Temperature 98.6 F 11/30/23 15:28 Pulse Rate 119 H 11/30/23 15:28 Respiratory Rate 18 11/30/23 15:28 Blood Pressure 128/61 11/30/23 15:28 Pulse Oximetry 100 11/30/23 15:28 Oxygen Delivery Method Room Air 11/30/23 15:28 Course <Alcira Mathis PA-C - Last Filed: 11/30/23 19:27> Orders Ordered: ED Orders 11/30/23 16:20 CT abdomen pelvis w con Stat 11/30/23 16:21 US pelvic complete Stat 11/30/23 17:00 CBC Auto Diff [Complete Blood Count AUTO DIFF] Stat CMP [Comprehensive Metabolic Panel] Stat ETOH [Ethanol (ETOH)] Stat Lactate (Lactic Acid) Stat Lipase Stat PT [Prothrombin Time INR] Stat PTT [PTT Partial Thromboplastin Josiah] Stat Discontinued Medications Sodium Chloride (Normal Saline 0.9%) 1,000 mls @ 1,000 mls/hr IV BOLUS ONE Stop: 11/30/23 18:41 Last Infusion: 11/30/23 18:50 Dose: Infused Documented By: Admin: 11/30/23 17:49 Dose: 1,000 mls/hr Documented By: CUCA Metoclopramide HCl (Metoclopramide 10 Mg/2 Ml Inj) 10 mg IV NOW ONE Stop: 11/30/23 20:19 Last Admin: 11/30/23 20:40 Dose: 10 mg Documented By: CUCA Morphine Sulfate (Morphine 4 Mg/Ml Inj) 4 mg IV NOW ONE Stop: 11/30/23 16:26 Last Admin: 11/30/23 17:13 Dose: 4 mg Documented By: CUCA Ondansetron HCl (Ondansetron 4 Mg Odt) 4 mg SL NOW PRN PRN Reason: Nausea And Vomiting Ondansetron HCl (Ondansetron 4 Mg/2 Ml Inj) 4 mg IV NOW PRN PRN Reason: Nausea And Vomiting Last Admin: 11/30/23 17:14 Dose: 4 mg Documented By: Admin: 11/30/23 17:13 Dose: 4 mg Documented By: CUCA Ondansetron HCl (Ondansetron 4 Mg/2 Ml Inj) 4 mg IV NOW ONE Stop: 11/30/23 19:31 Last Admin: 11/30/23 19:34 Dose: 4 mg Documented By: CUCA Ondansetron HCl (Ondansetron 4 Mg Odt Prepack) 1 bottle MISC DIRECTED ONE Stop: 11/30/23 21:01 Last Admin: 11/30/23 21:07 Dose: 1 bottle Documented By: CUCA Vital Signs Vital signs: Vital Signs - 8 hr 11/30/23 17:17 11/30/23 17:30 11/30/23 18:00 Pulse Rate 121 H 110 H 108 H Respiratory Rate 18 16 16 Blood Pressure 128/69 121/73 128/58 L Pulse Oximetry 98 97 98 Oxygen Delivery Method Room Air 11/30/23 18:30 11/30/23 19:00 11/30/23 19:54 Pulse Rate 107 H 110 H 120 H Respiratory Rate 16 16 18 Blood Pressure 116/59 L 111/59 L 120/61 Pulse Oximetry 100 100 95 Oxygen Delivery Method Room Air Room Air <Marquise Hart DO - Last Filed: 12/01/23 01:11> Orders Ordered: ED Orders 11/30/23 16:20 CT abdomen pelvis w con Stat 11/30/23 16:21 US pelvic complete Stat 11/30/23 17:00 CBC Auto Diff [Complete Blood Count AUTO DIFF] Stat CMP [Comprehensive Metabolic Panel] Stat ETOH [Ethanol (ETOH)] Stat Lactate (Lactic Acid) Stat Lipase Stat PT [Prothrombin Time INR] Stat PTT [PTT Partial Thromboplastin Josiah] Stat Discontinued Medications Sodium Chloride (Normal Saline 0.9%) 1,000 mls @ 1,000 mls/hr IV BOLUS ONE Stop: 11/30/23 18:41 Last Infusion: 11/30/23 18:50 Dose: Infused Documented By: Admin: 11/30/23 17:49 Dose: 1,000 mls/hr Documented By: CUCA Metoclopramide HCl (Metoclopramide 10 Mg/2 Ml Inj) 10 mg IV NOW ONE Stop: 11/30/23 20:19 Last Admin: 11/30/23 20:40 Dose: 10 mg Documented By: CUCA Morphine Sulfate (Morphine 4 Mg/Ml Inj) 4 mg IV NOW ONE Stop: 11/30/23 16:26 Last Admin: 11/30/23 17:13 Dose: 4 mg Documented By: CUCA Ondansetron HCl (Ondansetron 4 Mg Odt) 4 mg SL NOW PRN PRN Reason: Nausea And Vomiting Ondansetron HCl (Ondansetron 4 Mg/2 Ml Inj) 4 mg IV NOW PRN PRN Reason: Nausea And Vomiting Last Admin: 11/30/23 17:14 Dose: 4 mg Documented By: Admin: 11/30/23 17:13 Dose: 4 mg Documented By: CUCA Ondansetron HCl (Ondansetron 4 Mg/2 Ml Inj) 4 mg IV NOW ONE Stop: 11/30/23 19:31 Last Admin: 11/30/23 19:34 Dose: 4 mg Documented By: CUCA Ondansetron HCl (Ondansetron 4 Mg Odt Prepack) 1 bottle MISC DIRECTED ONE Stop: 11/30/23 21:01 Last Admin: 11/30/23 21:07 Dose: 1 bottle Documented By: CUCA Vital Signs Vital signs: Vital Signs - 8 hr 11/30/23 17:17 11/30/23 17:30 11/30/23 18:00 Pulse Rate 121 H 110 H 108 H Respiratory Rate 18 16 16 Blood Pressure 128/69 121/73 128/58 L Pulse Oximetry 98 97 98 Oxygen Delivery Method Room Air 11/30/23 18:30 11/30/23 19:00 11/30/23 19:54 Pulse Rate 107 H 110 H 120 H Respiratory Rate 16 16 18 Blood Pressure 116/59 L 111/59 L 120/61 Pulse Oximetry 100 100 95 Oxygen Delivery Method Room Air Room Air MDM - Abdominal Pain <Ileanaa FANY Mathis - Last Filed: 11/30/23 19:27> Lab Data 11/30/23 17:00 11/30/23 17:00 Labs: Lab Results 11/30/23 Range/Units 17:00 WBC 7.4 (4.5-11.0) X10^3/uL RBC 4.23 (4.0-5.2) X10^6/uL Hgb 12.6 (12.0-16.0) g/dL Hct 37.0 (36-46) % MCV 87.4 (80-100) fL MCH 29.8 (26-34) PG MCHC 34.1 (30-36) % RDW 13.4 (11.6-14.8) % Plt Count 185 (150-400) X10^3/uL Neut % (Auto) 77.6 H (50-75) % Lymph % (Auto) 17.3 L (25-40) % Montague % (Auto) 3.2 (3-14) % Eos % (Auto) 1.5 L (2-4) % Baso % (Auto) 0.4 (0-2) % Neut # (Auto) 5800 (2627-7742) /uL Lymph # (Auto) 1300 (4339-0447) /uL [place] # (Auto) 200 (0-900) /uL Eos # (Auto) 100 (0-450) /uL Baso # (Auto) 0 (0-100) /uL PT 12.7 H (9.4-12.5) SECONDS INR 1.1 (0.9-1.3) APTT 38 H (25.1-36.5) SECONDS Sodium 138 (137-145) mmol/L Potassium 4.0 (3.4-5.1) mmol/L Chloride 108 H (98-107) mmol/L Carbon Dioxide 22 (22-32) mmol/L BUN 8 (7-17) mg/dL Creatinine 0.66 (0.52-1.04) mg/dL Estimated GFR > 60 (>60) mL/min BUN/Creatinine Ratio 12.1 (6-22) Glucose 94 (70-100) mg/dL Lactate 2.5 H (0.7-2.1) mmol/L Calcium 9.4 (8.4-10.2) mg/dL Total Bilirubin 0.5 (0.2-1.3) mg/dL AST 28 (14-36) IU/L ALT 32 (<35) IU/L Alkaline Phosphatase 59 (38-126) U/L Total Protein 7.8 (6.3-8.2) g/dL Albumin 4.9 (3.5-5.0) g/dL Globulin 2.9 (1.7-4.1) g/dL Albumin/Globulin Ratio 1.7 (1.0-2.8) Lipase 81 (23-300) U/L Ethyl Alcohol < 10 ( - 10) mg/dL Point of care testing: Point of Care Testing Test Results Negative Glucose POC 81 Urine Dip Bedside Urine Glucose Negative Bedside Urine Bilirubin - Negative Bedside Urine Ketone - Negative Urine Specific Mccleary 1.015 Bedside Urine Occult Blood - Negative Bedside Urine pH 7.5 Bedside Urine Protein - Negative Bedside Urine Urobilinogen - Negative Bedside Urine Nitrite - Negative Bedside Urine Leukocytes - Negative Esterase MDM Narrative Medical decision making narrative: 28-year-old female with past medical history anxiety, depression, type 2 diabetes, migraines, PCOS, endometriosis, urolithiasis, seizures presents to the ED with 2 days of lower abdominal pain. Concern for versus ectopic versus ruptured ovarian cyst versus ovarian torsion versus endometrial serous appendicitis versus other intra-abdominal pathology versus other. Will obtain labs, UA, CT abdomen pelvis, ultrasound pelvis. Will give Zofran, morphine for symptoms. Urine negative for , negative for infection. Pelvic ultrasound without acute findings. Lactate elevated to 2.5. All other labs within normal limits. Patient was given a bolus of IV fluids. Will recheck lactate. CT scan is still pending. Patient has been signed out to Dr. Hart at this time. <Marquise Hart, - Last Filed: 12/01/23 01:11> Lab Data Labs: Lab Results 11/30/23 Range/Units 17:00 WBC 7.4 (4.5-11.0) X10^3/uL RBC 4.23 (4.0-5.2) X10^6/uL Hgb 12.6 (12.0-16.0) g/dL Hct 37.0 (36-46) % MCV 87.4 (80-100) fL MCH 29.8 (26-34) PG MCHC 34.1 (30-36) % RDW 13.4 (11.6-14.8) % Plt Count 185 (150-400) X10^3/uL Neut % (Auto) 77.6 H (50-75) % Lymph % (Auto) 17.3 L (25-40) % Montague % (Auto) 3.2 (3-14) % Eos % (Auto) 1.5 L (2-4) % Baso % (Auto) 0.4 (0-2) % Neut # (Auto) 5800 (7281-7239) /uL Lymph # (Auto) 1300 (7683-4914) /uL Montague # (Auto) 200 (0-900) /uL Eos # (Auto) 100 (0-450) /uL Baso # (Auto) 0 (0-100) /uL PT 12.7 H (9.4-12.5) SECONDS INR 1.1 (0.9-1.3) APTT 38 H (25.1-36.5) SECONDS Sodium 138 (137-145) mmol/L Potassium 4.0 (3.4-5.1) mmol/L Chloride 108 H (98-107) mmol/L Carbon Dioxide 22 (22-32) mmol/L BUN 8 (7-17) mg/dL Creatinine 0.66 (0.52-1.04) mg/dL Estimated GFR > 60 (>60) mL/min BUN/Creatinine Ratio 12.1 (6-22) Glucose 94 (70-100) mg/dL Lactate 2.5 H (0.7-2.1) mmol/L Calcium 9.4 (8.4-10.2) mg/dL Total Bilirubin 0.5 (0.2-1.3) mg/dL AST 28 (14-36) IU/L ALT 32 (<35) IU/L Alkaline Phosphatase 59 (38-126) U/L Total Protein 7.8 (6.3-8.2) g/dL Albumin 4.9 (3.5-5.0) g/dL Globulin 2.9 (1.7-4.1) g/dL Albumin/Globulin Ratio 1.7 (1.0-2.8) Lipase 81 (23-300) U/L Ethyl Alcohol < 10 ( - 10) mg/dL Point of care testing: Point of Care Testing Test Results Negative Glucose POC 81 Urine Dip Bedside Urine Glucose Negative Bedside Urine Bilirubin - Negative Bedside Urine Ketone - Negative Urine Specific Mccleary 1.015 Bedside Urine Occult Blood - Negative Bedside Urine pH 7.5 Bedside Urine Protein - Negative Bedside Urine Urobilinogen - Negative Bedside Urine Nitrite - Negative Bedside Urine Leukocytes - Negative Esterase MDM Narrative Medical decision making narrative: 28-year-old female with past medical history anxiety, depression, type 2 diabetes, migraines, PCOS, endometriosis, urolithiasis, seizures presents to the ED with 2 days of lower abdominal pain. Concern for versus ectopic versus ruptured ovarian cyst versus ovarian torsion versus endometrial serous appendicitis versus other intra-abdominal pathology versus other. Will obtain labs, UA, CT abdomen pelvis, ultrasound pelvis. Will give Zofran, morphine for symptoms. Urine negative for , negative for infection. Pelvic ultrasound without acute findings. Lactate elevated to 2.5. All other labs within normal limits. Patient was given a bolus of IV fluids. Will recheck lactate. CT scan is still pending. Patient has been signed out to Dr. Hart at this time. Dr hart: Received turned over. Review patient's history and physical and workup. CT scan shows no acute pathology. She was able to tolerate a small amount of oral intake after nausea medication here in the ER. There was no indication for antibiotics. No indication for acute surgical consultation. No indication for admission to the hospital. Recommended that she contact your primary doctor for follow-up. Discharge Plan Departure Patient Disposition: Home Clinical Impression: Abdominal pain Instructions: DI for Abdominal Pain-Adult Activity Restrictions/Additional Instructions: Recommend that you contact your primary care doctor for a follow-up. Continue to take any medications as directed. I recommend a bland diet. Return to the emergency department for new symptoms. Prescriptions: No Action hydrocodone-acetaminophen 5-325 mg tablet 1 tab PO Q8H PRN (Reason: pain) Qty: 7 0RF sulfamethoxazole-trimethoprim [Bactrim DS] 800-160 mg tablet 1 tab PO Q12H Qty: 14 0RF Referrals: ProviderBryant [Primary Care Provider] - Stand Alone Forms: Patient Portal/API
[2023-11-30] MEDS: MORPHINE 4 MG/ML INJ IV (17:13)
[2023-11-30] MEDS: ONDANSETRON 4 MG/2 ML INJ IV ×3 (17:13→19:34)
[2023-11-30 17:25] LABS: Add Manual Diff / Slide Review NO; Basophils Absolute Auto 0 /uL (0-100); Basophils Percent Auto 0.4 % (0-2); Eosinophils Absolute Auto 100 /uL (0-450); Eosinophils Percent Auto 1.5 % (2-4); Hemoglobin 12.6 g/dL (12.0-16.0); Lymphocytes Absolute Auto 1300 /uL (1100-4500); Lymphocytes Percent Auto 17.3 % (25-40); Mean Corpuscular HGB Conc 34.1 % (30-36); Mean Corpuscular Hemoglobin 29.8 PG (26-34); Mean Corpuscular Volume 87.4 fL (80-100); Monocytes Absolute Auto 200 /uL (0-900); Monocytes Percent Auto 3.2 % (3-14); Neutrophils Absolute Auto 5800 /uL (1500-7000); Neutrophils Percent Auto 77.6 % (50-75); Platelet Count 185 X10^3/uL (150-400); Red Blood Cell Count 4.23 X10^6/uL (4.0-5.2); Red Cell Distribution Width 13.4 % (11.6-14.8); White Blood Cell Count 7.4 X10^3/uL (4.5-11.0)
[2023-11-30 17:31] LABS: INR 1.1 (0.9-1.3); Prothrombin Time 12.7 SECONDS (9.4-12.5)
[2023-11-30 17:34] LABS: PTT Partial Thromboplastin Tim 38 SECONDS (25.1-36.5)
[2023-11-30 17:38] LABS: Alanine Aminotransferase 32 IU/L (<35); Albumin 4.9 g/dL (3.5-5.0); Albumin Globulin Ratio 1.7 (1.0-2.8); Alkaline Phosphatase 59 U/L (38-126); Aspartate Aminotransferase 28 IU/L (14-36); BUN Creatinine Ratio 12.1 (6-22); Bilirubin Total 0.5 mg/dL (0.2-1.3); Blood Urea Nitrogen 8 mg/dL (7-17); Calcium 9.4 mg/dL (8.4-10.2); Carbon Dioxide 22 mmol/L (22-32); Chloride 108 mmol/L (98-107); Estimated Glomerular Filt Rate > 60 mL/min (>60); Globulin 2.9 g/dL (1.7-4.1); Glucose 94 mg/dL (70-100); HEMOLYSIS < 15 (0-50); Lipase 81 U/L (23-300); Sodium 138 mmol/L (137-145); Total Protein 7.8 g/dL (6.3-8.2)
[2023-11-30 17:39] LABS: Lactate (Lactic Acid) 2.5 mmol/L (0.7-2.1)
[2023-11-30] MEDS: SODIUM CHLORIDE 0.9% 1,000 ML 1000 ML IV (17:49)
[2023-11-30 18:55] LABS: Reflexed Lactate in 2 Hours Y
[2023-11-30 19:20] LABS: Ethanol (ETOH) < 10 mg/dL
[2023-11-30] MEDS: METOCLOPRAMIDE 10 MG/2 ML INJ IV (20:40)
[2023-11-30] MEDS: ONDANSETRON 4 MG ODT PREPACK 1 BOTTLE MISC (21:07)
== END 2023-11-30 21:08 | disposition home or self-care (01) ==
PROVIDERS: Emergency Provider Student in an Organized Health Care Education/Training Program
DX: R10.30 Lower abdominal pain, unspecified (principal); R11.2 Nausea with vomiting, unspecified
CPT/HCPCS: 36415; 74177; 76856; 80053; 80320; 81003; 81025; 82962; 83605; 83690; 85025; 85610; 85730; 96361; 96374; 96375; 96376; 99284; J2270; J2405; J2765; Q9967

== ENCOUNTER 2024-04-25 19:55 | Emergency (ER) | payer OTHER, SELFPAY ==
[2024-04-25] VITALS (9 sets, daily range): BP systolic 101–119; BP diastolic 56–74; PULSE 73–90; RESP 16; TEMP 36.2; O2SAT 96–97; BMI 29.9
[2024-04-25 20:34] LABS: Add Manual Diff / Slide Review NO; Basophils Absolute Auto 100 /uL (0-100); Basophils Percent Auto 0.5 % (0-2); Eosinophils Absolute Auto 200 /uL (0-450); Eosinophils Percent Auto 1.6 % (2-4); Hematocrit 37.1 % (36-46); Hemoglobin 12.5 g/dL (12.0-16.0); Lymphocytes Absolute Auto 3800 /uL (1100-4500); Lymphocytes Percent Auto 40.4 % (25-40); Mean Corpuscular HGB Conc 33.8 % (30-36); Mean Corpuscular Hemoglobin 27.9 PG (26-34); Mean Corpuscular Volume 82.6 fL (80-100); Monocytes Absolute Auto 600 /uL (0-900); Monocytes Percent Auto 6.2 % (3-14); Neutrophils Absolute Auto 4800 /uL (1500-7000); Neutrophils Percent Auto 51.3 % (50-75); Platelet Count 221 X10^3/uL (150-400); Red Blood Cell Count 4.48 X10^6/uL (4.0-5.2); Red Cell Distribution Width 13.8 % (11.6-14.8); White Blood Cell Count 9.4 X10^3/uL (4.5-11.0)
[2024-04-25 20:44] LABS: Alanine Aminotransferase 24 IU/L (<35); Albumin 4.4 g/dL (3.5-5.0); Albumin Globulin Ratio 1.3 (1.0-2.8); Alkaline Phosphatase 52 U/L (38-126); Aspartate Aminotransferase 25 IU/L (14-36); BUN Creatinine Ratio 17.5 (6-22); Bilirubin Total 0.3 mg/dL (0.2-1.3); Blood Urea Nitrogen 10 mg/dL (7-17); Calcium 9.4 mg/dL (8.4-10.2); Carbon Dioxide 28 mmol/L (22-32); Chloride 100 mmol/L (98-107); Estimated Glomerular Filt Rate > 60 mL/min (>60); Globulin 3.3 g/dL (1.7-4.1); Glucose 166 mg/dL (70-100); HEMOLYSIS < 15 (0-50); Lipase 67 U/L (23-300); Potassium 3.8 mmol/L (3.4-5.1); Sodium 135 mmol/L (137-145); Total Protein 7.7 g/dL (6.3-8.2)
[2024-04-25 20:58] LABS: Appearance Urine UA CLEAR; Bilirubin Urine UA NEGATIVE (NEGATIVE); Color Urine UA YELLOW; Glucose Urine UA TRACE g/dL (Negative); Ketones Urine UA TRACE (NEGATIVE); Leukocyte Esterase Urine UA NEGATIVE (NEGATIVE); Nitrite Urine UA NEGATIVE (Negative); Occult Blood Urine UA NEGATIVE (Negative); Protein Urine UA NEGATIVE (Negative); Specific Gravity Urine UA >=1.030 (1.000-1.035); Urobilinogen Urine UA 0.2 E.U./dL (0.2)
[2024-04-25 21:09] LABS: Ictotest Urine Negative (Negative)
[2024-04-25 21:15] LABS: Amorphous Sediment Urine 2+; Bacteria Urine None Seen; Culture Indicated Urine Cult Not Indicated; RBC Urine None Seen (0-5/HPF); Squamous Epithelial Cell Urine 0-1 /HPF (0-5/HPF); Urine Volume 10mL (spun); WBC Urine None Seen (0-5/HPF)
--- NOTE | 2024-04-25 22:29 | ED_ITS ---
HPI - Abdominal Pain General Chief Complaint: Abdominal Pain Stated Complaint: rt sided pelvic pain, abd pain (stabbing) Time Seen by Provider: 04/25/24 22:29 Source: patient Mode of arrival: Ambulatory History of Present Illness HPI narrative: 29-year-old female currently having evaluation at [facility] infertility clinic, just underwent diagnostic hysterosalpingogram at [facility] on 04/12/2024, results pending with follow up infertility clinic, complains of right lower quadrant discomfort last few days. No fevers or chills. She has had some loose stools, no black or red stools. Some nausea without emesis. No injury trauma or new activities. No vaginal discharge. Related Data Previous Rx's Medication Instructions Recorded hydrocodone 5 mg-acetaminophen 325 1 tab PO Q8H PRN pain #7 tabs 11/13/23 mg tablet sulfamethoxazole 800 1 tab PO Q12H #14 tabs 11/13/23 mg-trimethoprim 160 mg tablet (Bactrim DS) Allergies Allergy/AdvReac Type Severity Reaction Status Date / Time hydrocodone Allergy Do not Verified 04/25/24 20:07 prescribe nickel Allergy Anaphylaxis Verified 04/25/24 20:07 lurasidone [From Latuda] AdvReac Hives Verified 04/25/24 20:07 Review of Systems Review of Systems Narrative: see HPI Patient History Social History Smoking Status: Current every day smoker Smoking Status: Current every day smoker tobacco type: vaping alcohol intake frequency: a few times a month Substance Use Type: former substance user Exam Narrative Exam Narrative: GENERAL: Well-developed patient, in mild distress. HEAD: Atraumatic. Normocephalic. EYES: Pupils equal round and reactive. Extraocular motions intact. No scleral icterus. No injection or drainage. ENT: Nose without bleeding, purulent drainage. Throat without erythema, tonsillar hypertrophy or exudate. Airway patent. NECK: Trachea midline. Non tender CARDIOVASCULAR: Regular rate and rhythm without murmurs, gallops, or rubs. RESPIRATORY: Clear to auscultation. Breath sounds equal bilaterally. No wheezes, rales, or rhonchi. GASTROINTESTINAL: Some tenderness right lower quadrant, no guarding or rebound, nondistended. EXTREMITIES: No edema or joint tenderness. BACK: Nontender without deformity or crepitance. No flank tenderness. NEURO: AOx3. Motor functions grossly nonfocal SKIN: No rash or erythema of visible areas Initial Vital Signs Initial Vital Signs: Vital Signs Temperature 97.2 F L 04/25/24 20:07 Pulse Rate 90 04/25/24 20:07 Respiratory Rate 16 04/25/24 20:07 Blood Pressure 119/74 04/25/24 20:07 Pulse Oximetry 96 04/25/24 20:07 Oxygen Delivery Method Room Air 04/25/24 20:07 Course Orders Ordered: ED Orders 04/25/24 20:25 Complete Blood Count AUTO DIFF Stat Comprehensive Metabolic Panel Stat Ictotest Urine Stat Lipase Stat Urinalysis and Microscopic Stat 04/25/24 22:43 US pelvic complete Stat Discontinued Medications Ketorolac Tromethamine (Ketorolac 30 Mg/Ml Vial) 15 mg IV NOW ONE Stop: 04/25/24 22:40 Last Admin: 04/25/24 22:44 Dose: 15 mg Documented By: TREY Ondansetron HCl (Ondansetron 4 Mg/2 Ml Inj) 4 mg IV NOW PRN PRN Reason: Nausea And Vomiting Ondansetron HCl (Ondansetron 4 Mg Odt) 4 mg PO NOW PRN PRN Reason: Nausea And Vomiting Vital Signs Vital signs: Vital Signs - 8 hr 04/25/24 20:07 04/25/24 22:31 04/25/24 22:33 Temperature 97.2 F L Pulse Rate 90 85 Respiratory Rate 16 Blood Pressure 119/74 110/65 Pulse Oximetry 96 97 Oxygen Delivery Method Room Air Room Air 04/25/24 22:50 04/25/24 22:50 04/25/24 23:00 Temperature Pulse Rate 73 Respiratory Rate Blood Pressure 113/68 105/61 Pulse Oximetry 97 Oxygen Delivery Method 04/25/24 23:00 04/25/24 23:20 04/25/24 23:30 Temperature Pulse Rate 77 82 Respiratory Rate Blood Pressure 101/57 L Pulse Oximetry 97 97 Oxygen Delivery Method Room Air 04/25/24 23:36 04/25/24 23:41 Temperature Pulse Rate 77 Respiratory Rate Blood Pressure 103/56 L Pulse Oximetry 97 Oxygen Delivery Method MDM - Abdominal Pain Lab Data Attestation: I reviewed the patient's lab results. 04/25/24 20:25 04/25/24 20:25 Labs: Lab Results 04/25/24 Range/Units 20:25 WBC 9.4 (4.5-11.0) X10^3/uL RBC 4.48 (4.0-5.2) X10^6/uL Hgb 12.5 (12.0-16.0) g/dL Hct 37.1 (36-46) % MCV 82.6 (80-100) fL MCH 27.9 (26-34) PG MCHC 33.8 (30-36) % RDW 13.8 (11.6-14.8) % Plt Count 221 (150-400) X10^3/uL Neut % (Auto) 51.3 (50-75) % Lymph % (Auto) 40.4 H (25-40) % [place] % (Auto) 6.2 (3-14) % Eos % (Auto) 1.6 L (2-4) % Baso % (Auto) 0.5 (0-2) % Neut # (Auto) 4800 (5170-5543) /uL Lymph # (Auto) 3800 (9204-4816) /uL [place] # (Auto) 600 (0-900) /uL Eos # (Auto) 200 (0-450) /uL Baso # (Auto) 100 (0-100) /uL Sodium 135 L (137-145) mmol/L Potassium 3.8 (3.4-5.1) mmol/L Chloride 100 (98-107) mmol/L Carbon Dioxide 28 (22-32) mmol/L BUN 10 (7-17) mg/dL Creatinine 0.57 (0.52-1.04) mg/dL Estimated GFR > 60 (>60) mL/min BUN/Creatinine Ratio 17.5 (6-22) Glucose 166 H (70-100) mg/dL Calcium 9.4 (8.4-10.2) mg/dL Total Bilirubin 0.3 (0.2-1.3) mg/dL AST 25 (14-36) IU/L ALT 24 (<35) IU/L Alkaline Phosphatase 52 (38-126) U/L Total Protein 7.7 (6.3-8.2) g/dL Albumin 4.4 (3.5-5.0) g/dL Globulin 3.3 (1.7-4.1) g/dL Albumin/Globulin Ratio 1.3 (1.0-2.8) Lipase 67 (23-300) U/L Urine Color Yellow Urine Appearance Clear Urine pH 5.0 (4.5-8.0) Ur Specific [place]ridge >=1.030 H (1.000-1.035) Urine Protein Negative (Negative) Urine Glucose (UA) Trace H (Negative) g/dL Urine Ketones Trace H (NEGATIVE) Urine Occult Blood Negative (Negative) Urine Nitrate Negative (Negative) Urine Bilirubin Negative (NEGATIVE) Ur Bilirubin Confirm Negative (Negative) Urine Urobilinogen 0.2 (0.2) E.U./dL Ur Leukocyte Esterase Negative (NEGATIVE) Urine RBC None seen (0-5/HPF) Urine WBC None seen (0-5/HPF) Ur Squamous Epith Cells 0-1 /hpf (0-5/HPF) Amorphous Sediment 2+ Urine Bacteria None seen (None) Ur Culture Indicated? Cult not indicated Vol Urine Centrifuged 10ml (spun) Point of care testing: Point of Care Testing Test Results Negative Urine Dip Bedside Urine Glucose Negative Bedside Urine Bilirubin + 1 Bedside Urine Ketone +/- 5 Urine Specific [place] 1.030 Bedside Urine pH 5.0 Bedside Urine Protein +/- 15 Bedside Urine Urobilinogen - Negative Bedside Urine Nitrite - Negative Bedside Urine Leukocytes - Negative Esterase Imaging Data Pelvic ultrasound: Radiologist's Impression: [place] [address] Ultrasound Report Signed Patient: Ysabel Bañuelos MR#: [id number] : 1995 Acct:[id number] Age/Sex: 29 / F Date of Service: 04/25/24 Loc: ED Accession Number: [id number] Procedure: US pelvic complete Ordering Provider: Rasheed Murray MD PROCEDURE: US PELVIC COMPLETE INDICATIONS: R pelvis pain, tender, recent HSG on 04/12 [place] TECHNIQUE: Real-time scanning was performed of the pelvic organs, with image documentation. Additional endovaginal scanning was necessary due to incomplete visualization of the adnexal and endometrial structures by transabdominal scanning. COMPARISON: [facility], , US PELVIC COMPLETE, 11/30/2023, 16:40. FINDINGS: Uterus: Uterus is anteverted and normal in size at 7.8 x 4.3 x 5.4 cm. The myometrium is homogeneous. The endometrium measures 10 mm combined thickness. Heterogeneous endometrium, with small internal cystic change. Nabothian cyst is present. Ovaries: The right ovary measures 3.3 x 3.8 x 3.5 cm, with a calculated ovarian volume of 23 cc. The left ovary measures 2.8 x 2.7 x 1.5 cm, with a calculated ovarian volume of 6 cc. The ovaries have a normal sonographic appearance. There is a right ovarian cystic lesion with a daughter follicle measuring 3.1 x 3.3 x 2.9 cm. The surrounding ovarian stroma is non edematous, and there is bilateral patent arterial waveforms. Less than 12 follicles can be seen in each ovary. No adnexal masses are seen. Other: No pathologic free abdominal or pelvic fluid. IMPRESSION: 3.1 x 3.3 x 2.9 cm right ovarian cyst with daughter follicle. Recommend sonographic follow-up in 6-12 weeks per consensus guidelines (given symptoms). No evidence of ovarian torsion at this time. Slightly cystic appearance of the endometrium, which may indicate hypertrophy. Attention on follow-up. We strive to produce accurate, complete, and clear reports of imaging services. To assist us in improving patient care, this report was composed using standard report templates and voice recognition software. Therefore, it may contain abnormal punctuation, insertions and/or omissions. Occasional wrong-word or sound-alike substitutions may occur. Though we review the report and make efforts to correct it, we do recommend that the report be read carefully in proper context to recognize any text inaccuracies. Dictated by: Cliff Lopez M.D. on 04/25/2024 at 23:47 Approved by: Cliff Lopez M.D. on 04/25/2024 at 23:50 [facility] Narrative Medical decision making narrative: 29-year-old female with history of infertility, undergoing evaluation, recent hysterosalpingogram [facility] 04/12/2024. Right lower quadrant discomfort, still has her appendix. No injury or trauma. Afebrile, sirs screen negative. Some tenderness right lower quadrant on examination. DDx consider complication of recent diagnostic procedure in the adnexal region, consider also ovarian torsion, ovarian cyst, PID, TOA, appendicitis, colitis, diverticulitis, bowel obstruction, lymphadenitis, UTI, other. Urine hCG negative. Ultrasound pelvis requested. IV Toradol. Pelvic ultrasound transabdominal and endovaginal, prelim tech report. Simple cyst right adnexa 3.1 x 3.3 x 2.9 cm. Left ovarian small follicle 1.4 cm diameter. Good flow to both ovaries. Heterogeneous endometrium. Anteverted uterus. No free fluid mentioned. Sono tech report. Dictated radiology report pending. Verbal report relayed from sono tech interpretation. They would like to be discharged now, improved symptoms. Follow up with [facility] gynecology planned. They can request copy of formal radiology reading at that time. Trial of [id number] pain medications as needed. Return precautions discussed, home with family Discharge Plan Departure Patient Disposition: Home Clinical Impression: Abdominal pain, Ovarian cyst Instructions: DI for Ovarian Cyst, DI for Abdominal Pain-Adult Activity Restrictions/Additional Instructions: Right-sided lower abdominal discomfort, right pelvic area discomfort, status post a diagnostic hysterosalpingogram done at [facility] on 04/12/2024 as part of a workup for infertility. Unclear if this diagnostic procedure was associated with any injury or discomfort. No fever. Mild tenderness on transabdominal exam. Normal vital signs noted. Some response to Toradol pain medication. test was negative. Ultrasound of the pelvis showed the presence of right-sided ovarian cyst, no mention of rupture or involution, no infectious changes, good blood flow to both ovaries. It might be possible that the right-sided ovarian cyst is the cause of discomfort, or there maybe some other cause of the discomfort. We did discuss further advanced imaging such as CT scan abdomen and pelvis, significant radiation exposure, likely not worth the risks of radiation at this time, he declined that study. Take Tylenol and or Motrin for pelvic discomfort for now. Follow up with your in fertility specialists as scheduled, for the results of your tests and further workup. Return earlier to this/nearest emergency department for any change worsening symptoms or any concerns prior Prescriptions: No Action hydrocodone-acetaminophen 5-325 mg tablet 1 tab PO Q8H PRN (Reason: pain) Qty: 7 0RF sulfamethoxazole-trimethoprim [Bactrim DS] 800-160 mg tablet 1 tab PO Q12H Qty: 14 0RF Referrals: ProviderBryant [Primary Care Provider] - Stand Alone Forms: Patient Portal/API
--- NOTE | 2024-04-25 22:43 | DI.US.S_ITS ---
PROCEDURE: US PELVIC COMPLETE INDICATIONS: R pelvis pain, tender, recent HSG on 04/12 [place] TECHNIQUE: Real-time scanning was performed of the pelvic organs, with image documentation. Additional endovaginal scanning was necessary due to incomplete visualization of the adnexal and endometrial structures by transabdominal scanning. COMPARISON: [facility], US, US PELVIC COMPLETE, 11/30/2023, 16:40. FINDINGS: Uterus: Uterus is anteverted and normal in size at 7.8 x 4.3 x 5.4 cm. The myometrium is homogeneous. The endometrium measures 10 mm combined thickness. Heterogeneous endometrium, with small internal cystic change. Nabothian cyst is present. Ovaries: The right ovary measures 3.3 x 3.8 x 3.5 cm, with a calculated ovarian volume of 23 cc. The left ovary measures 2.8 x 2.7 x 1.5 cm, with a calculated ovarian volume of 6 cc. The ovaries have a normal sonographic appearance. There is a right ovarian cystic lesion with a daughter follicle measuring 3.1 x 3.3 x 2.9 cm. The surrounding ovarian stroma is non edematous, and there is bilateral patent arterial waveforms. Less than 12 follicles can be seen in each ovary. No adnexal masses are seen. Other: No pathologic free abdominal or pelvic fluid. IMPRESSION: 3.1 x 3.3 x 2.9 cm right ovarian cyst with daughter follicle. Recommend sonographic follow-up in 6-12 weeks per consensus guidelines (given symptoms). No evidence of ovarian torsion at this time. Slightly cystic appearance of the endometrium, which may indicate hypertrophy. Attention on follow-up. We strive to produce accurate, complete, and clear reports of imaging services. To assist us in improving patient care, this report was composed using standard report templates and voice recognition software. Therefore, it may contain abnormal punctuation, insertions and/or omissions. Occasional wrong-word or sound-alike substitutions may occur. Though we review the report and make efforts to correct it, we do recommend that the report be read carefully in proper context to recognize any text inaccuracies. Dictated by: Cliff Lopez M.D. on 04/25/2024 at 23:47 Approved by: Cliff Lopez M.D. on 04/25/2024 at 23:50
[2024-04-25] MEDS: KETOROLAC 30 MG/ML VIAL 15 MG IV (22:44)
== END 2024-04-25 23:58 | disposition home or self-care (01) ==
PROVIDERS: Emergency Provider Emergency Medicine
DX: R10.31 Right lower quadrant pain (principal); N83.201 Unspecified ovarian cyst, right side
CPT/HCPCS: 36415; 76830; 76856; 80053; 81001; 81003; 81025; 83690; 85025; 93975; 96374; 99284; J1885

== ENCOUNTER 2024-04-29 20:54 | Emergency (ER) | payer OTHER, SELFPAY ==
[2024-04-29] VITALS (10 sets, daily range): BP systolic 112–133; BP diastolic 61–85; PULSE 83–98; RESP 16–22; TEMP 37.2; O2SAT 95–100; BMI 29.2
--- NOTE | 2024-04-29 20:56 | ED.GENADULT ---
HPI - General Adult General Chief complaint: Seizure Stated complaint: fall, hit head, had seizure Time Seen by Provider: 04/29/24 20:55 Source: patient and family Mode of arrival: Ambulatory Limitations: no limitations History of Present Illness HPI narrative: Patient is a 29-year-old female was here for evaluation of potentially a fall then seizure or seizure then a fall. Patient reports that she was getting up from using the toilet. She stated that all the sudden everything went black. Her arrived home to find her lying on the ground seizing. She does have a seizure history. She was followed by a neurologist. She was not on seizure medications but is using other modalities such as Botox. Patient's states that her seizure activity has actually improved. She was here describing pain in her neck and also a contusion to the left forehead. She does seem somewhat confused about the event. No extremity injuries. Related Data Previous Rx's Medication Instructions Recorded hydrocodone 5 mg-acetaminophen 325 1 tab PO Q8H PRN pain #7 tabs 11/13/23 mg tablet sulfamethoxazole 800 1 tab PO Q12H #14 tabs 11/13/23 mg-trimethoprim 160 mg tablet (Bactrim DS) Allergies Allergy/AdvReac Type Severity Reaction Status Date / Time hydrocodone Allergy Do not Verified 04/25/24 20:07 prescribe nickel Allergy Anaphylaxis Verified 04/25/24 20:07 lurasidone [From Latuda] AdvReac Hives Verified 04/25/24 20:07 Review of Systems Review of Systems Narrative: Provided by and patient Patient History Social History Smoking Status: Current every day smoker Smoking Status: Current every day smoker tobacco type: vaping alcohol intake frequency: a few times a month Substance Use Type: former substance user Exam Initial Vital Signs Initial Vital Signs: Vital Signs Pulse Rate 98 H 04/29/24 20:59 Blood Pressure 133/85 04/29/24 20:59 Pulse Oximetry 97 04/29/24 20:59 Const General: cooperative, comfortable and No ill appearing HENMT Head: normal to inspection and normocephalic Face and sinus: normal facial exam Resp Effort & Inspection: normal respiratory effort Auscultation: clear to auscultation bilaterally Cardio Rate: regular rate Back/Spine/Pelvis Cervical Spine: cervical muscular tenderness and No cervical spinal tenderness Thoracic/Lumbar Spine: No thoracic spinal tenderness Skin General: no rashes or lesions noted Neuro General: patient alert, patient awake and moves all extremities Extrem General: capillary refill normal Scores Syrian CT Head Rule Age <16 years old: No Patient on blood thinners: No Seizure after injury: Yes Exclusion: Patient meets exclusion criteria Course Orders Ordered: ED Orders 04/29/24 21:05 Complete Blood Count AUTO DIFF Stat Comprehensive Metabolic Panel Stat Ethanol (ETOH) Stat Lipase Stat Test Serum,Qual Stat Prolactin Stat 04/29/24 21:09 CT cervical spine wo con Stat CT head/brain wo con Stat EKG-12 Lead Stat Vital Signs Vital signs: Vital Signs - 8 hr 04/29/24 20:59 04/29/24 20:59 04/29/24 21:00 Temperature Pulse Rate 98 H 95 H Respiratory Rate Blood Pressure 133/85 Pulse Oximetry 97 97 Oxygen Delivery Method 04/29/24 21:02 04/29/24 21:02 04/29/24 21:04 Temperature 99 F Pulse Rate 95 H 97 H Respiratory Rate 16 Blood Pressure 127/83 133/85 Pulse Oximetry 96 100 Oxygen Delivery Method Room Air 04/29/24 21:30 04/29/24 21:30 04/29/24 21:58 Temperature Pulse Rate 87 86 Respiratory Rate 22 21 Blood Pressure 123/67 Pulse Oximetry 95 96 Oxygen Delivery Method 04/29/24 21:58 04/29/24 22:00 04/29/24 22:00 Temperature Pulse Rate 85 Respiratory Rate 21 Blood Pressure 114/67 114/67 Pulse Oximetry 95 Oxygen Delivery Method 04/29/24 22:30 04/29/24 22:30 04/29/24 23:00 Temperature Pulse Rate 83 86 Respiratory Rate 20 19 Blood Pressure 125/61 Pulse Oximetry 96 95 Oxygen Delivery Method 04/29/24 23:00 04/29/24 23:30 04/29/24 23:30 Temperature Pulse Rate 83 Respiratory Rate 19 Blood Pressure 112/66 114/66 Pulse Oximetry 95 Oxygen Delivery Method 04/30/24 00:00 04/30/24 00:00 Temperature Pulse Rate 86 Respiratory Rate 20 Blood Pressure 121/64 Pulse Oximetry 95 Oxygen Delivery Method Medical Decision Making Lab Data Lab results reviewed: Yes I reviewed the patient's lab results. 04/29/24 21:05 04/29/24 21:05 Labs: Lab Results 04/29/24 Range/Units 21:05 WBC 10.3 (4.5-11.0) X10^3/uL RBC 4.48 (4.0-5.2) X10^6/uL Hgb 12.5 (12.0-16.0) g/dL Hct 37.2 (36-46) % MCV 82.9 (80-100) fL MCH 27.9 (26-34) PG MCHC 33.7 (30-36) % RDW 13.6 (11.6-14.8) % Plt Count 215 (150-400) X10^3/uL Neut % (Auto) 51.4 (50-75) % Lymph % (Auto) 40.5 H (25-40) % [place] % (Auto) 5.8 (3-14) % Eos % (Auto) 1.7 L (2-4) % Baso % (Auto) 0.6 (0-2) % Neut # (Auto) 5300 (9663-8782) /uL Lymph # (Auto) 4200 (3866-3743) /uL [place] # (Auto) 600 (0-900) /uL Eos # (Auto) 200 (0-450) /uL Baso # (Auto) 100 (0-100) /uL Sodium 135 L (137-145) mmol/L Potassium 3.8 (3.4-5.1) mmol/L Chloride 104 (98-107) mmol/L Carbon Dioxide 22 (22-32) mmol/L BUN 9 (7-17) mg/dL Creatinine 0.53 (0.52-1.04) mg/dL Estimated GFR > 60 (>60) mL/min BUN/Creatinine Ratio 17.0 (6-22) Glucose 123 H (70-100) mg/dL Calcium 9.5 (8.4-10.2) mg/dL Total Bilirubin 0.4 (0.2-1.3) mg/dL AST 24 (14-36) IU/L ALT 24 (<35) IU/L Alkaline Phosphatase 55 (38-126) U/L Total Protein 8.0 (6.3-8.2) g/dL Albumin 4.5 (3.5-5.0) g/dL Globulin 3.5 (1.7-4.1) g/dL Albumin/Globulin Ratio 1.3 (1.0-2.8) Lipase 92 (23-300) U/L Prolactin 9.9 (3.0-18.6) ng/mL Serum , Qual Negative (Negative) Ethyl Alcohol < 10 ( - 10) mg/dL Imaging Data CT scan - head: Radiologist's Impression: PROCEDURE: CT HEAD/BRAIN WO CON INDICATIONS: Seizure with fall and head injury TECHNIQUE: Noncontrast 4.5 mm thick angled axial sections acquired from the foramen magnum to the vertex, with coronal and sagittal reformats. For radiation dose reduction, the following was used: automated exposure control, adjustment of mA and/or kV according to patient size. COMPARISON: None. FINDINGS: Image quality: Diagnostic. CSF spaces: Basal cisterns are patent. No extra-axial fluid collections. Ventricles are normal in size and shape. Brain: No midline shift. No intracranial masses or hemorrhage. Mcgovern-white matter interface is normal. Skull and face: Calvarium and visualized facial bones are intact, without suspicious lesions. Sinuses: Visualized sinuses and mastoids are clear. IMPRESSION: No acute intracranial pathology. CT - cervical spine: Radiologist's Impression: PROCEDURE: CT CERVICAL SPINE WO CON INDICATIONS: Seizure, fall, neck pain TECHNIQUE: Noncontrast 3 mm thick sections acquired from the skull base to the T4 level. Sagittal and coronal reformats were then constructed. For radiation dose reduction, the following was used: automated exposure control, adjustment of mA and/or kV according to patient size. COMPARISON: None. FINDINGS: Image quality: Excellent. Bones: No fractures or dislocations. Visualized superior ribs are intact. Soft tissues: Prevertebral soft tissues are normal in thickness. No paravertebral hematomas. No apical pneumothoraces. IMPRESSION: No displaced fracture or traumatic subluxation. MDM Narrative Medical decision making narrative: It appears that the patient did have seizure activity. Unsure as to whether not she fell and then had a seizure or the other way around. Her CT scan is unremarkable. She was back to normal in his alert and oriented x3. Labs are unremarkable. We discussed the importance of talking with her neurologist about the seizure that she had today. She was given return precautions and follow-up instructions. She expressed understanding and agreement with plan. Discharge Plan Departure Patient Disposition: Home Clinical Impression: Seizure Instructions: DI for Seizure Disorder -- Adult Activity Restrictions/Additional Instructions: Continue to take all of your medications as directed. I recommend that you contact your neurologist to inform them that you potentially had another seizure this evening. No driving until you are cleared by either your primary doctor or Neurology. Return to the emergency department for new symptoms. Prescriptions: No Action hydrocodone-acetaminophen 5-325 mg tablet 1 tab PO Q8H PRN (Reason: pain) Qty: 7 0RF sulfamethoxazole-trimethoprim [Bactrim DS] 800-160 mg tablet 1 tab PO Q12H Qty: 14 0RF Referrals: ProviderBryant [Primary Care Provider] - Stand Alone Forms: Patient Portal/API
--- NOTE | 2024-04-29 21:09 | DI.CT.S_ITS ---
PROCEDURE: CT CERVICAL SPINE WO CON INDICATIONS: Seizure, fall, neck pain TECHNIQUE: Noncontrast 3 mm thick sections acquired from the skull base to the T4 level. Sagittal and coronal reformats were then constructed. For radiation dose reduction, the following was used: automated exposure control, adjustment of mA and/or kV according to patient size. COMPARISON: None. FINDINGS: Image quality: Excellent. Bones: No fractures or dislocations. Visualized superior ribs are intact. Soft tissues: Prevertebral soft tissues are normal in thickness. No paravertebral hematomas. No apical pneumothoraces. IMPRESSION: No displaced fracture or traumatic subluxation. Dictated by: Usman Dudley M.D. on 04/29/2024 at 23:56 Approved by: Usman Dudley M.D. on 04/29/2024 at 23:58
--- NOTE | 2024-04-29 21:09 | DI.CT.S_ITS ---
PROCEDURE: CT HEAD/BRAIN WO CON INDICATIONS: Seizure with fall and head injury TECHNIQUE: Noncontrast 4.5 mm thick angled axial sections acquired from the foramen magnum to the vertex, with coronal and sagittal reformats. For radiation dose reduction, the following was used: automated exposure control, adjustment of mA and/or kV according to patient size. COMPARISON: None. FINDINGS: Image quality: Diagnostic. CSF spaces: Basal cisterns are patent. No extra-axial fluid collections. Ventricles are normal in size and shape. Brain: No midline shift. No intracranial masses or hemorrhage. Mcgovern-white matter interface is normal. Skull and face: Calvarium and visualized facial bones are intact, without suspicious lesions. Sinuses: Visualized sinuses and mastoids are clear. IMPRESSION: No acute intracranial pathology. Dictated by: Usman Dudley M.D. on 04/29/2024 at 23:55 Approved by: Usman Dudley M.D. on 04/29/2024 at 23:56
--- NOTE | 2024-04-29 21:09 | EKG_ITS ---
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
[2024-04-29 21:20] LABS: Add Manual Diff / Slide Review NO; Basophils Absolute Auto 100 /uL (0-100); Basophils Percent Auto 0.6 % (0-2); Eosinophils Absolute Auto 200 /uL (0-450); Eosinophils Percent Auto 1.7 % (2-4); Hematocrit 37.2 % (36-46); Hemoglobin 12.5 g/dL (12.0-16.0); Lymphocytes Absolute Auto 4200 /uL (1100-4500); Lymphocytes Percent Auto 40.5 % (25-40); Mean Corpuscular HGB Conc 33.7 % (30-36); Mean Corpuscular Hemoglobin 27.9 PG (26-34); Mean Corpuscular Volume 82.9 fL (80-100); Monocytes Absolute Auto 600 /uL (0-900); Monocytes Percent Auto 5.8 % (3-14); Neutrophils Absolute Auto 5300 /uL (1500-7000); Neutrophils Percent Auto 51.4 % (50-75); Platelet Count 215 X10^3/uL (150-400); Red Blood Cell Count 4.48 X10^6/uL (4.0-5.2); Red Cell Distribution Width 13.6 % (11.6-14.8); White Blood Cell Count 10.3 X10^3/uL (4.5-11.0)
[2024-04-29 21:27] LABS: Alanine Aminotransferase 24 IU/L (<35); Albumin 4.5 g/dL (3.5-5.0); Albumin Globulin Ratio 1.3 (1.0-2.8); Alkaline Phosphatase 55 U/L (38-126); Aspartate Aminotransferase 24 IU/L (14-36); Bilirubin Total 0.4 mg/dL (0.2-1.3); Blood Urea Nitrogen 9 mg/dL (7-17); Calcium 9.5 mg/dL (8.4-10.2); Carbon Dioxide 22 mmol/L (22-32); Chloride 104 mmol/L (98-107); Estimated Glomerular Filt Rate > 60 mL/min (>60); Ethanol (ETOH) < 10 mg/dL; Globulin 3.5 g/dL (1.7-4.1); Glucose 123 mg/dL (70-100); Lipase 92 U/L (23-300); Potassium 3.8 mmol/L (3.4-5.1); Sodium 135 mmol/L (137-145)
[2024-04-29 21:30] LABS: Pregnancy Test Serum,Qual Negative (Negative)
[2024-04-29 22:15] LABS: HEMOLYSIS < 15 (0-50); Prolactin 9.9 ng/mL (3.0-18.6)
[2024-04-30] VITALS: BP 121/64; PULSE 86; RESP 20; O2SAT 95
== END 2024-04-30 00:15 | disposition home or self-care (01) ==
PROVIDERS: Emergency Provider Emergency Medicine
DX: G40.909 Epilepsy, unspecified, not intractable, without status epilepticus (principal); M54.2 Cervicalgia; S09.90XA Unspecified injury of head, initial encounter
CPT/HCPCS: 36415; 70450; 72125; 80053; 80320; 83690; 84146; 84703; 85025; 93005; 93010; 99283; 99284

== ENCOUNTER 2024-08-07 16:03 | Emergency (ER) | payer OTHER, SELFPAY ==
[2024-08-07 16:09] VITALS: BP 147/68; PULSE 71; RESP 12; TEMP 36.8; O2SAT 100; BMI 33.6
[2024-08-07 16:38] LABS: Add Manual Diff / Slide Review NO; Basophils Absolute Auto 100 /uL (0-100); Basophils Percent Auto 0.8 % (0-2); Eosinophils Absolute Auto 100 /uL (0-450); Eosinophils Percent Auto 0.8 % (2-4); Hematocrit 39.2 % (36-46); Hemoglobin 13.2 g/dL (12.0-16.0); Lymphocytes Absolute Auto 3400 /uL (1100-4500); Lymphocytes Percent Auto 47.5 % (25-40); Mean Corpuscular HGB Conc 33.6 % (30-36); Mean Corpuscular Hemoglobin 27.8 PG (26-34); Mean Corpuscular Volume 82.7 fL (80-100); Monocytes Absolute Auto 300 /uL (0-900); Monocytes Percent Auto 4.7 % (3-14); Neutrophils Absolute Auto 3300 /uL (1500-7000); Neutrophils Percent Auto 46.2 % (50-75); Platelet Count 253 X10^3/uL (150-400); Red Blood Cell Count 4.74 X10^6/uL (4.0-5.2); Red Cell Distribution Width 13.3 % (11.6-14.8); White Blood Cell Count 7.1 X10^3/uL (4.5-11.0)
[2024-08-07 16:48] LABS: Alanine Aminotransferase 32 IU/L (<35); Albumin 4.8 g/dL (3.5-5.0); Albumin Globulin Ratio 1.5 (1.0-2.8); Alkaline Phosphatase 54 U/L (38-126); Aspartate Aminotransferase 32 IU/L (14-36); BUN Creatinine Ratio 23.6 (6-22); Bilirubin Total 0.4 mg/dL (0.2-1.3); Blood Urea Nitrogen 13 mg/dL (7-17); Calcium 9.8 mg/dL (8.4-10.2); Carbon Dioxide 28 mmol/L (22-32); Chloride 101 mmol/L (98-107); Estimated Glomerular Filt Rate > 60 mL/min (>60); Globulin 3.1 g/dL (1.7-4.1); Glucose 96 mg/dL (70-100); HEMOLYSIS < 15 (0-50); Lipase 94 U/L (23-300); Potassium 3.9 mmol/L (3.4-5.1); Sodium 138 mmol/L (137-145); Total Protein 7.9 g/dL (6.3-8.2)
--- NOTE | 2024-08-07 17:16 | DI.CT.S_ITS ---
PROCEDURE: CT ABDOMEN PELVIS W CON INDICATIONS: abd pain TECHNIQUE: After the administration of intravenous contrast, axial sections acquired from the lung bases to the pubic symphysis. Coronal and sagittal reformats were performed. For radiation dose reduction, the following was used: automated exposure control, adjustment of mA and/or kV according to patient size. COMPARISON: [facility], CT, CT ABDOMEN PELVIS W CON, 11/30/2023, 16:35. [facility], CT, CT ABDOMEN PELVIS WITHOUT CONTRAST, 06/22/2024, 21:17. FINDINGS: Image quality: Diagnostic. Lower Chest: No significant findings. ABDOMEN: Liver: No solid mass. Liver is enlarged with steatosis measuring 20.6 cm. Gallbladder: No radiopaque gallstones or wall thickening. Biliary ducts: No biliary dilation. Pancreas: No ductal dilation. Spleen: Size is within normal limits. Adrenal Glands: No adrenal nodules. Kidneys and Ureters: No hydronephrosis. No solid mass. No complex renal cystic lesion which requires follow up. Stomach and Bowel: Normal colonic caliber, without significant wall thickening. Appendix is normal. Peritoneum: No abnormal intraperitoneal fluid. No free air. Ventral Wall: No significant ventral hernia. Abdominal Nodes: No retroperitoneal or mesenteric adenopathy by size criteria. Vessels: Aorta and inferior vena cava are normal in size. PELVIS: Pelvic Organs: Right ovarian cyst measuring 3.3 cm is present. This is new compared to prior exam. Left ovarian cyst has decreased in size currently measuring 1.4 cm compared to 3.7 cm. Bladder: No bladder wall thickening, accounting for underdistention. Pelvic Nodes: No enlarged lymph nodes. Miscellaneous: No inguinal hernias are seen. Bones: No aggressive osseous abnormality. IMPRESSION: Right ovarian cyst, new compared to prior exam. Dictated by: Leana Whitaker M.D. on 08/07/2024 at 17:58 Approved by: Leana Whitaker M.D. on 08/07/2024 at 18:01
[2024-08-07] MEDS: METOCLOPRAMIDE 10 MG/2 ML INJ IV (17:25)
--- NOTE | 2024-08-07 18:21 | ED_ITS ---
HPI - Abdominal Pain <Alcira Mathis PA-C - Last Filed: 08/08/24 13:58> General Chief Complaint: Abdominal Pain Stated Complaint: Abdominal cramping, nausea, vomiting Time Seen by Provider: 08/07/24 17:10 Source: patient Mode of arrival: Ambulatory History of Present Illness HPI narrative: 29-year-old female presents to the ED with 3 days of generalized abdominal pain, nausea, vomiting, diarrhea. Endorses some urinary frequency. No dysuria. Patient denies eating any suspicious foods. Denies fever, chills, chest pain, shortness of breath. Related Data Previous Rx's Medication Instructions Recorded hydrocodone 5 mg-acetaminophen 325 1 tab PO Q8H PRN pain #7 tabs 11/13/23 mg tablet sulfamethoxazole 800 1 tab PO Q12H #14 tabs 11/13/23 mg-trimethoprim 160 mg tablet (Bactrim DS) metoclopramide HCl 10 mg tablet 10 mg PO Q6H PRN nausea and 08/07/24 (Reglan) vomiting #20 tabs Allergies Allergy/AdvReac Type Severity Reaction Status Date / Time hydrocodone Allergy Do not Verified 04/25/24 20:07 prescribe nickel Allergy Anaphylaxis Verified 04/25/24 20:07 lurasidone [From Latuda] AdvReac Hives Verified 04/25/24 20:07 Review of Systems <Alcira Mathis PA-C - Last Filed: 08/08/24 13:58> Constitutional Constitutional: Denies chills, Denies fatigue, Denies fever(s), Denies frequent falls, Denies lethargy and Denies weakness Eyes Eyes: Denies change in vision, Denies eye discharge, Denies irritation and Denies loss of vision ENT Ears, Nose, Mouth, and Throat: Denies change in voice, Denies dizziness, Denies neck pain, Denies sore throat and Denies throat swelling Cardiovascular Cardiovascular: Denies chest pain, Denies irregular heart rhythm, Denies lightheadedness, Denies palpitations, Denies dyspnea, Denies dyspnea on exertion and Denies orthopnea Respiratory Respiratory: Denies cough, Denies dyspnea, Denies dyspnea on exertion and Denies wheezing Gastrointestinal Gastrointestinal: Reports abdominal pain, Denies change in bowel habits, Reports diarrhea, Reports nausea and Reports vomiting Genitourinary Comments: Urinary frequency Musculoskeletal Musculoskeletal: Denies neck pain and Denies numbness Integumentary/Breasts Skin/Breast: Denies pruritus, Denies erythema, Denies rash and Denies wounds Neurologic Neurologic: Denies behavioral changes, Denies confusion, Denies dizziness, Denies frequent falls, Denies loss of vision, Denies numbness and Denies weakness Psychiatric Psychiatric: Denies anxiety, Denies behavioral changes, Denies confusion, Denies depression, Denies homicidal ideation and Denies suicidal ideation Endocrine Endocrine: Denies fatigue, Denies flushing and Denies palpitations Hematologic/Lymphatic Hematologic/Lymphatic: Denies easy bruising Allergic/Immunologic Allergic/Immunologic: Denies urticaria, Denies throat swelling and Denies wheezing Patient History <Alcira Mathis PA-C - Last Filed: 08/08/24 13:58> Social History Smoking Status: Former smoker Smoking Status: Former smoker tobacco type: vaping alcohol intake frequency: a few times a month Exam <Alcira Mathis PA-C - Last Filed: 08/08/24 13:58> Narrative Exam Narrative: Const General:?cooperative, healthy appearing and comfortable [facility] Head:?normal to inspection Ears:?hearing grossly normal bilaterally Nose:?external nose normal Face and sinus:?normal facial exam and sinuses nontender Mouth:?oral mucosae normal Throat:?posterior oropharynx normal Eyes General:?appearance normal, both eyes and all related structures Neck Neck:?normal visual inspection and no lymphadenopathy noted Resp Effort & Inspection:?normal respiratory effort Auscultation:?clear to auscultation bilaterally Cardio Rate:?regular rate Rhythm:?regular rhythm GI Abdomen is soft, nondistended. Abdomen is diffusely tender to palpation. No CVA tenderness. Neuro General:?patient alert, patient awake and patient oriented x3 Initial Vital Signs Initial Vital Signs: Vital Signs Temperature 98.2 F 08/07/24 16:09 Pulse Rate 71 08/07/24 16:09 Respiratory Rate 12 08/07/24 16:09 Blood Pressure 147/68 H 08/07/24 16:09 Pulse Oximetry 100 08/07/24 16:09 Oxygen Delivery Method Room Air 08/07/24 16:09 <Emily Reynolds DO - Last Filed: 08/10/24 09:34> Initial Vital Signs Initial Vital Signs: Vital Signs Temperature 98.2 F 08/07/24 16:09 Pulse Rate 71 08/07/24 16:09 Respiratory Rate 12 08/07/24 16:09 Blood Pressure 147/68 H 08/07/24 16:09 Pulse Oximetry 100 08/07/24 16:09 Oxygen Delivery Method Room Air 08/07/24 16:09 Course <Alcira Mathis PA-C - Last Filed: 08/08/24 13:58> Orders Ordered: Discontinued Medications Metoclopramide HCl (Metoclopramide 10 Mg/2 Ml Inj) 10 mg IV NOW ONE Stop: 08/07/24 17:17 Last Admin: 08/07/24 17:25 Dose: 10 mg Documented By: Ondansetron HCl (Ondansetron 4 Mg/2 Ml Inj) 4 mg IV NOW PRN PRN Reason: Nausea And Vomiting Ondansetron HCl (Ondansetron 4 Mg Odt) 4 mg PO NOW PRN PRN Reason: Nausea And Vomiting Vital Signs Vital signs: Vital Signs - 8 hr 08/07/24 16:09 Temperature 98.2 F Pulse Rate 71 Respiratory Rate 12 Blood Pressure 147/68 H Pulse Oximetry 100 Oxygen Delivery Method Room Air <Emily Reynolds DO - Last Filed: 08/10/24 09:34> Orders Ordered: Discontinued Medications Metoclopramide HCl (Metoclopramide 10 Mg/2 Ml Inj) 10 mg IV NOW ONE Stop: 08/07/24 17:17 Last Admin: 08/07/24 17:25 Dose: 10 mg Documented By: Ondansetron HCl (Ondansetron 4 Mg/2 Ml Inj) 4 mg IV NOW PRN PRN Reason: Nausea And Vomiting Ondansetron HCl (Ondansetron 4 Mg Odt) 4 mg PO NOW PRN PRN Reason: Nausea And Vomiting Vital Signs Vital signs: Vital Signs - 8 hr 08/07/24 16:09 Temperature 98.2 F Pulse Rate 71 Respiratory Rate 12 Blood Pressure 147/68 H Pulse Oximetry 100 Oxygen Delivery Method Room Air MDM - Abdominal Pain <FANY Kirby Last Filed: 08/08/24 13:58> Lab Data 08/07/24 16:25 08/07/24 16:25 Labs: Lab Results 08/07/24 Range/Units 16:25 WBC 7.1 (4.5-11.0) X10^3/uL RBC 4.74 (4.0-5.2) X10^6/uL Hgb 13.2 (12.0-16.0) g/dL Hct 39.2 (36-46) % MCV 82.7 (80-100) fL MCH 27.8 (26-34) PG MCHC 33.6 (30-36) % RDW 13.3 (11.6-14.8) % Plt Count 253 (150-400) X10^3/uL Neut % (Auto) 46.2 L (50-75) % Lymph % (Auto) 47.5 H (25-40) % [place] % (Auto) 4.7 (3-14) % Eos % (Auto) 0.8 L (2-4) % Baso % (Auto) 0.8 (0-2) % Neut # (Auto) 3300 (5458-1781) /uL Lymph # (Auto) 3400 (8198-0652) /uL [place] # (Auto) 300 (0-900) /uL Eos # (Auto) 100 (0-450) /uL Baso # (Auto) 100 (0-100) /uL Sodium 138 (137-145) mmol/L Potassium 3.9 (3.4-5.1) mmol/L Chloride 101 (98-107) mmol/L Carbon Dioxide 28 (22-32) mmol/L BUN 13 (7-17) mg/dL Creatinine 0.55 (0.52-1.04) mg/dL Estimated GFR > 60 (>60) mL/min BUN/Creatinine Ratio 23.6 H (6-22) Glucose 96 (70-100) mg/dL Calcium 9.8 (8.4-10.2) mg/dL Total Bilirubin 0.4 (0.2-1.3) mg/dL AST 32 (14-36) IU/L ALT 32 (<35) IU/L Alkaline Phosphatase 54 (38-126) U/L Total Protein 7.9 (6.3-8.2) g/dL Albumin 4.8 (3.5-5.0) g/dL Globulin 3.1 (1.7-4.1) g/dL Albumin/Globulin Ratio 1.5 (1.0-2.8) Lipase 94 (23-300) U/L Point of care testing: Point of Care Testing Test Results Negative Urine Dip Bedside Urine Glucose Negative Bedside Urine Bilirubin - Negative Bedside Urine Ketone - Negative Urine Specific [place] 1.020 Bedside Urine Occult Blood - Negative Bedside Urine pH 5.5 Bedside Urine Protein - Negative Bedside Urine Urobilinogen - Negative Bedside Urine Nitrite - Negative Bedside Urine Leukocytes - Negative Esterase MDM Narrative Medical decision making narrative: 29-year-old female presents to the ED with 3 days of generalized abdominal pain, nausea, vomiting, diarrhea. Concern for gastroenteritis versus UTI versus other intra-abdominal pathology versus other. Will obtain labs, urinalysis,Urine hCG, CT abdomen pelvis. Will give Reglan for nausea. Labs within normal limits. UA without UTI. Urine hCG is negative. CT abdomen pelvis shows a right ovarian cyst measuring 3.3 cm. This is new compared to the prior exam. Left ovarian cyst has decreased in size currently measuring 1.4 cm compared to 3.7 cm. No other acute findings. Patient's symptoms improved significantly with the Reglan. Discussed findings and plan with patient. Recommend supportive care with Reglan for nausea, plenty of hydration. Recommend taking Benadryl with Reglan if any extrapyramidal symptoms. Recommend follow-up with PCP. ED return precautions were discussed with patient. Patient verbalized understanding. Medical records reviewed: Yes <Emily Reynolds DO - Last Filed: 08/10/24 09:34> Lab Data Labs: Lab Results 08/07/24 Range/Units 16:25 WBC 7.1 (4.5-11.0) X10^3/uL RBC 4.74 (4.0-5.2) X10^6/uL Hgb 13.2 (12.0-16.0) g/dL Hct 39.2 (36-46) % MCV 82.7 (80-100) fL MCH 27.8 (26-34) PG MCHC 33.6 (30-36) % RDW 13.3 (11.6-14.8) % Plt Count 253 (150-400) X10^3/uL Neut % (Auto) 46.2 L (50-75) % Lymph % (Auto) 47.5 H (25-40) % [place] % (Auto) 4.7 (3-14) % Eos % (Auto) 0.8 L (2-4) % Baso % (Auto) 0.8 (0-2) % Neut # (Auto) 3300 (6986-0563) /uL Lymph # (Auto) 3400 (6594-8037) /uL [place] # (Auto) 300 (0-900) /uL Eos # (Auto) 100 (0-450) /uL Baso # (Auto) 100 (0-100) /uL Sodium 138 (137-145) mmol/L Potassium 3.9 (3.4-5.1) mmol/L Chloride 101 (98-107) mmol/L Carbon Dioxide 28 (22-32) mmol/L BUN 13 (7-17) mg/dL Creatinine 0.55 (0.52-1.04) mg/dL Estimated GFR > 60 (>60) mL/min BUN/Creatinine Ratio 23.6 H (6-22) Glucose 96 (70-100) mg/dL Calcium 9.8 (8.4-10.2) mg/dL Total Bilirubin 0.4 (0.2-1.3) mg/dL AST 32 (14-36) IU/L ALT 32 (<35) IU/L Alkaline Phosphatase 54 (38-126) U/L Total Protein 7.9 (6.3-8.2) g/dL Albumin 4.8 (3.5-5.0) g/dL Globulin 3.1 (1.7-4.1) g/dL Albumin/Globulin Ratio 1.5 (1.0-2.8) Lipase 94 (23-300) U/L Point of care testing: Point of Care Testing Test Results Negative Urine Dip Bedside Urine Glucose Negative Bedside Urine Bilirubin - Negative Bedside Urine Ketone - Negative Urine Specific [place] 1.020 Bedside Urine Occult Blood - Negative Bedside Urine pH 5.5 Bedside Urine Protein - Negative Bedside Urine Urobilinogen - Negative Bedside Urine Nitrite - Negative Bedside Urine Leukocytes - Negative Esterase Discharge Plan Departure Patient Disposition: Home Clinical Impression: Abdominal pain Qualifiers: Abdominal location: generalized Qualified Code(s): R10.84 - Generalized abdominal pain Instructions: DI for Abdominal Pain-Adult Activity Restrictions/Additional Instructions: You were evaluated in the ED today for abdominal pain. Your labs were normal and the CT scan did not show any abnormalities to explain your symptoms. The CT scan did show a right-sided ovarian cyst that is new, a left-sided ovarian cyst that is reduced in size from prior. However, the cysts should not cause use the discomfort that you are experiencing today. Your symptoms are most consistent with food poisoning or gastroenteritis. Your nausea was well controlled with Reglan today in the ED and you are being prescribed Reglan to take at home as needed. If you notice any restlessness, agitation with Reglan, please take 25 mg of Benadryl along with it. Return to the ED if you have worsening symptoms. Prescriptions: New metoclopramide HCl [Reglan] 10 mg tablet 10 mg PO Q6H PRN (Reason: nausea and vomiting) Qty: 20 0RF No Action hydrocodone-acetaminophen 5-325 mg tablet 1 tab PO Q8H PRN (Reason: pain) Qty: 7 0RF sulfamethoxazole-trimethoprim [Bactrim DS] 800-160 mg tablet 1 tab PO Q12H Qty: 14 0RF Referrals: ProviderBryant [Primary Care Provider] - Stand Alone Forms: Patient Portal/API/Survey ED Sign-out <Emily Reynolds DO - Last Filed: 08/10/24 09:34> Cosign ED Attending Catherineature Attestation: I was immediately available in the department for consultation.
== END 2024-08-07 18:23 | disposition home or self-care (01) ==
PROVIDERS: Emergency Medicine; Emergency Provider Student in an Organized Health Care Education/Training Program
DX: R10.84 Generalized abdominal pain (principal); R11.2 Nausea with vomiting, unspecified; R19.7 Diarrhea, unspecified
CPT/HCPCS: 36415; 74177; 80053; 81003; 81025; 83690; 85025; 96374; 99284; J2765; Q9967

== ENCOUNTER 2024-10-07 13:16 | Emergency (ER) | payer OTHER, SELFPAY ==
[2024-10-07] VITALS (10 sets, daily range): BP systolic 121–135; BP diastolic 71–84; PULSE 69–86; RESP 16–20; TEMP 36.2; O2SAT 94–98; BMI 33.2
--- NOTE | 2024-10-07 14:25 | ED_ITS ---
HPI - Abdominal Pain General Chief Complaint: Abdominal Pain Stated Complaint: Abd Px, Nausea, Hot & Cold, Stomach feels rigid Time Seen by Provider: 10/07/24 14:23 Source: patient, RN notes reviewed and old records reviewed Mode of arrival: Ambulatory Limitations: no limitations History of Present Illness HPI narrative: 29-year-old female history of diabetes, endometriosis, presents with complaint of abdominal pain. Patient states symptoms started last October has been intermittent. Patient has seen GI in the past year, had labs and stool studies. Has had EGD and told she had multiple ulcers that was several years ago. Has not had any CT imaging in the last 1 or 2 years. Was prescribed Bentyl and Carafate by primary care about a month ago but has not started these. States she feels hot and cold sometimes her stomach feels sort of rigid and almost like it has not in particularly the lower half. Seems to be little bit more on the right side sometimes wraps around from the back. She has had nausea and vomiting intermittently since last October. Seems to sometimes be worsened by food particularly protein. She notes she will sometimes have diarrhea like stools, no black or bloody stools. No persistent diarrhea. Denies any dysuria, urgency or frequency. Just completed her menses 4 days ago was induced with medroxyprogesterone and was on letrozole as they are trying to get with OB assistance. Patient states home medications currently include omeprazole, metformin, daily multivitamin and . Patient has never had a colonoscopy. Was seen by Gastroenterology at [facility]. Has a primary care physician at [facility]. Is following with hide puller through [facility]. Former smoker, no regular alcohol, denies recreational drugs or marijuana. Patient notes allergies to nickel, Latuda and no allergies to hydrocodone or oxycodone but wants to avoid these. Accompanied by significant other. Related Data Previous Rx's Medication Instructions Recorded hydrocodone 5 mg-acetaminophen 325 1 tab PO Q8H PRN pain #7 tabs 11/13/23 mg tablet sulfamethoxazole 800 1 tab PO Q12H #14 tabs 11/13/23 mg-trimethoprim 160 mg tablet (Bactrim DS) metoclopramide HCl 10 mg tablet 10 mg PO Q6H PRN nausea and 08/07/24 (Reglan) vomiting #20 tabs Allergies Allergy/AdvReac Type Severity Reaction Status Date / Time hydrocodone Allergy Do not Verified 10/07/24 13:23 prescribe nickel Allergy Anaphylaxis Verified 10/07/24 13:23 lurasidone [From Latuda] AdvReac Hives Verified 10/07/24 13:23 Review of Systems Review of Systems ROS Unobtainable: All systems reviewed & are unremarkable except as noted in HPI and below Patient History Social History Smoking Status: Former smoker Smoking Status: Former smoker tobacco type: vaping alcohol intake frequency: a few times a month Exam Narrative Exam Narrative: GENERAL: Alert and oriented x three, female in mild distress. HEENT: Head normocephalic, atraumatic, EOMI, pupils reactive, face symmetric, moist mucous membranes NECK: Supple, full range of motion CARDIOVASCULAR: Regular rate and rhythm without murmurs, rubs or gallops. RESPIRATORY: Breath sounds equal bilaterally, no wheezes rales or rhonchi. ABDOMEN: Soft, generalized tenderness. Slightly distended. Normoactive bowel sounds all 4 quadrants. No guarding or rebound, rigidity, no mass, no pulsatile mass or bruit. : No CVA tenderness EXTREMITIES: Normal range of motion, no clubbing or edema. Neurovascularly intact NEUROLOGICAL: Cranial nerves II through XII grossly intact. Moving all extremities SKIN: Warm, dry, no petechiae, no rashes or lesions. Initial Vital Signs Initial Vital Signs: Vital Signs Temperature 97.1 F L 10/07/24 13:24 Pulse Rate 72 10/07/24 13:24 Respiratory Rate 17 10/07/24 13:24 Blood Pressure 121/84 10/07/24 13:24 Pulse Oximetry 98 10/07/24 13:24 Oxygen Delivery Method Room Air 10/07/24 13:24 Course Orders Ordered: ED Orders 10/07/24 13:50 Test Urine Stat 10/07/24 14:16 Complete Blood Count AUTO DIFF Stat Comprehensive Metabolic Panel Stat Lipase Stat 10/07/24 15:00 CT abdomen pelvis w con Stat Discontinued Medications Ondansetron HCl (Ondansetron 4 Mg/2 Ml Inj) 4 mg IV NOW PRN PRN Reason: Nausea And Vomiting Ondansetron HCl (Ondansetron 4 Mg Odt) 4 mg PO NOW PRN PRN Reason: Nausea And Vomiting Ondansetron HCl (Ondansetron 4 Mg/2 Ml Inj) 4 mg IV NOW ONE Stop: 10/07/24 15:03 Last Admin: 10/07/24 15:53 Dose: Not Given Documented By: LIEN Prochlorperazine (Prochlorperazine 10 Mg/2 Ml Vial) 10 mg IV NOW ONE Stop: 10/07/24 15:50 Last Admin: 10/07/24 15:58 Dose: 10 mg Documented By: LIEN Vital Signs Vital signs: Vital Signs - 8 hr 10/07/24 13:24 10/07/24 14:23 10/07/24 14:30 Temperature 97.1 F L Pulse Rate 72 86 82 Respiratory Rate 17 18 Blood Pressure 121/84 Pulse Oximetry 98 96 96 Oxygen Delivery Method Room Air Room Air Room Air 10/07/24 15:00 10/07/24 15:36 10/07/24 15:37 Temperature Pulse Rate 77 79 Respiratory Rate 17 Blood Pressure 131/74 Pulse Oximetry 97 97 Oxygen Delivery Method Room Air 10/07/24 15:37 10/07/24 15:58 10/07/24 16:00 Temperature Pulse Rate 84 81 Respiratory Rate 20 Blood Pressure 132/81 132/81 Pulse Oximetry 97 Oxygen Delivery Method 10/07/24 16:00 10/07/24 16:30 10/07/24 16:30 Temperature Pulse Rate 84 72 Respiratory Rate 20 17 Blood Pressure 132/71 Pulse Oximetry 95 94 Oxygen Delivery Method Room Air Room Air 10/07/24 17:00 Temperature Pulse Rate 69 Respiratory Rate 16 Blood Pressure 135/72 Pulse Oximetry 97 Oxygen Delivery Method MDM - Abdominal Pain Lab Data 10/07/24 14:16 10/07/24 14:16 Labs: Lab Results 10/07/24 10/07/24 Range/Units 13:50 14:16 WBC 6.7 (4.5-11.0) X10^3/uL RBC 3.99 L (4.0-5.2) X10^6/uL Hgb 11.3 L (12.0-16.0) g/dL Hct 33.2 L (36-46) % MCV 83.2 (80-100) fL MCH 28.2 (26-34) PG MCHC 33.9 (30-36) % RDW 14.2 (11.6-14.8) % Plt Count 234 (150-400) X10^3/uL Neut % (Auto) 49.8 L (50-75) % Lymph % (Auto) 43.0 H (25-40) % Curry % (Auto) 5.8 (3-14) % Eos % (Auto) 1.0 L (2-4) % Baso % (Auto) 0.4 (0-2) % Neut # (Auto) 3300 (4852-7234) /uL Lymph # (Auto) 2900 (7986-9098) /uL Curry # (Auto) 400 (0-900) /uL Eos # (Auto) 100 (0-450) /uL Baso # (Auto) 0 (0-100) /uL Sodium 139 (137-145) mmol/L Potassium 3.9 (3.4-5.1) mmol/L Chloride 103 (98-107) mmol/L Carbon Dioxide 25 (22-32) mmol/L BUN 10 (7-17) mg/dL Creatinine 0.60 (0.52-1.04) mg/dL Estimated GFR > 60 (>60) mL/min BUN/Creatinine Ratio 16.7 (6-22) Glucose 94 (70-100) mg/dL Calcium 8.7 (8.4-10.2) mg/dL Total Bilirubin 0.3 (0.2-1.3) mg/dL AST 34 (14-36) IU/L ALT 30 (<35) IU/L Alkaline Phosphatase 51 (38-126) U/L Total Protein 7.1 (6.3-8.2) g/dL Albumin 4.4 (3.5-5.0) g/dL Globulin 2.7 (1.7-4.1) g/dL Albumin/Globulin Ratio 1.6 (1.0-2.8) Lipase 148 (23-300) U/L Urine Test Negative (Negative) Point of care testing: Urine Dip Bedside Urine Glucose Negative Bedside Urine Bilirubin - Negative Bedside Urine Ketone - Negative Urine Specific [place] 1.015 Bedside Urine Occult Blood - Negative Bedside Urine pH 6.5 Bedside Urine Protein - Negative Bedside Urine Urobilinogen - Negative Bedside Urine Nitrite - Negative Bedside Urine Leukocytes - Negative Esterase Imaging Data CT scan - abdomen/pelvis: Radiologist's Impression: Close Abdomen/Pelvis CT (Signed) Lidia Hall - 10/07/24 Abdomen/Pelvis CT (Signed) Leana Whitaker - 08/07/[address] (Signed) OctaviaFordn - 04/29/[address] (Signed) Usman Dudley - 04/29/24 Pelvis Ultrasound (Signed) Cliff Lopez - 04/25/24 Telemetry Strips 04/25/24 Pelvis Ultrasound (Signed) Manisha Turner - 11/30/23 Abdomen/Pelvis CT (Signed) Bib Flores - 11/30/23 Pelvis Ultrasound (Signed) Recio,Adonis - 11/16/23 Renal Ultrasound (Signed) Point Clear[place] keenane - 10/31/23 Launch?Image [place] [id number] CT Scan Report Signed Patient: Ysabel Bañuelos MR#: [id number] : 1995 Acct:[id number] Age/Sex: 29 / F Date of Service: 10/07/24 Loc: ED Accession Number: [id number] Procedure: CT abdomen pelvis w con Ordering Provider: Emily Reynolds D.O. PROCEDURE: CT ABDOMEN PELVIS W CON INDICATIONS: abd pain R>L, acute on chronic TECHNIQUE: After the administration of intravenous contrast, axial sections acquired from the lung bases to the pubic symphysis. Coronal and sagittal reformats were performed. For radiation dose reduction, the following was used: automated exposure control, adjustment of mA and/or kV according to patient size. COMPARISON: [facility], CT, CT ABDOMEN PELVIS W CON, 08/07/2024, 17:30. FINDINGS: Image quality: Diagnostic. Lower Chest: No significant findings. ABDOMEN: Liver: No solid mass. Gallbladder: No radiopaque gallstones or wall thickening. Biliary ducts: No biliary dilation. Pancreas: No ductal dilation. Spleen: Size is within normal limits. Adrenal Glands: No adrenal nodules. Kidneys and Ureters: No hydronephrosis. No solid mass. No complex renal cystic lesion which requires follow up. Stomach and Bowel: Normal colonic caliber, without significant wall thickening. Peritoneum: No abnormal intraperitoneal fluid. No free air. Ventral Wall: No significant ventral hernia. Abdominal Nodes: No retroperitoneal or mesenteric adenopathy by size criteria. Vessels: Aorta and inferior vena cava are normal in size. PELVIS: Pelvic Organs: Unremarkable. Bladder: No bladder wall thickening, accounting for underdistention. Pelvic Nodes: No enlarged lymph nodes. Miscellaneous: No inguinal hernias are seen. Bones: No aggressive osseous abnormality. IMPRESSION: No CT evidence for the etiology of the patient's symptoms. Specifically, no appendicitis, diverticulitis, urolithiasis, or obstruction. Dictated by: Lidia Hall M.D. on 10/07/2024 at 15:34 Approved by: Lidia Hall M.D. on 10/07/2024 at 15:37 MDM Narrative Medical decision making narrative: Labs show white count of 6.7 hemoglobin 11.3 platelets of 234 predominance of lymphocytes. Electrolytes are appropriate, creatinine 0.6 glucose is 94, LFTs are negative lipase is 148. poc urine is negative. urine is negative. CT abdomen/pelvis shows no acute change on imaging. Patient received Toradol and compazine. Discussed findings with the patient patient has seen Gastroenterology before she was had an upper EGD which showed ulcers but never lower colonoscopy symptoms to be seemed to be more in her lower abdomen. Little bit more right-sided but denies wraps around somewhat. Discussed with the patient potential differential she does have a history of endometriosis which he would cause pain we would likely benefit from colonoscopy would recommend follow up with primary care/GI which she has seen in the past and her Gynecology group. 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 She has follow up with Gynecology in place. Did discuss trying the medications prescribed including her Carafate and Bentyl to see if these are helpful to continue with Tylenol/ibuprofen PRN for pain. She was on omeprazole daily. Discharge Plan Departure Patient Disposition: Home Clinical Impression: Abdominal pain Instructions: DI for Abdominal Pain-Adult Activity Restrictions/Additional Instructions: I do recommend follow up. Please call to set this up. If you would like contacts included below for General surgery and/or gastroenterology more locally for potential EGD and colonoscopy. Please call to set up follow-up. I would recommend trying the medications prescribed before by your physician for a trial period to see if this makes any change. Please return for fevers, persistent vomiting, lightheadedness or passing out, new black or bloody stools, difficulty or inability to urinate or other new or concerning changes. Prescriptions: No Action metoclopramide HCl [Reglan] 10 mg tablet 10 mg PO Q6H PRN (Reason: nausea and vomiting) Qty: 20 0RF hydrocodone-acetaminophen 5-325 mg tablet 1 tab PO Q8H PRN (Reason: pain) Qty: 7 0RF sulfamethoxazole-trimethoprim [Bactrim DS] 800-160 mg tablet 1 tab PO Q12H Qty: 14 0RF Referrals: Hermilo Anders MD [Physician] - Simón Lin MD [Physician] - Provider,Bryant CESAR [Primary Care Provider] - Stand Alone Forms: Patient Portal/API/Survey
[2024-10-07 14:33] LABS: Add Manual Diff / Slide Review NO; Basophils Absolute Auto 0 /uL (0-100); Basophils Percent Auto 0.4 % (0-2); Eosinophils Absolute Auto 100 /uL (0-450); Hematocrit 33.2 % (36-46); Hemoglobin 11.3 g/dL (12.0-16.0); Lymphocytes Absolute Auto 2900 /uL (1100-4500); Mean Corpuscular HGB Conc 33.9 % (30-36); Mean Corpuscular Hemoglobin 28.2 PG (26-34); Mean Corpuscular Volume 83.2 fL (80-100); Monocytes Absolute Auto 400 /uL (0-900); Monocytes Percent Auto 5.8 % (3-14); Neutrophils Absolute Auto 3300 /uL (1500-7000); Neutrophils Percent Auto 49.8 % (50-75); Platelet Count 234 X10^3/uL (150-400); Red Blood Cell Count 3.99 X10^6/uL (4.0-5.2); Red Cell Distribution Width 14.2 % (11.6-14.8); White Blood Cell Count 6.7 X10^3/uL (4.5-11.0)
[2024-10-07 14:51] LABS: Alanine Aminotransferase 30 IU/L (<35); Albumin 4.4 g/dL (3.5-5.0); Albumin Globulin Ratio 1.6 (1.0-2.8); Alkaline Phosphatase 51 U/L (38-126); Aspartate Aminotransferase 34 IU/L (14-36); BUN Creatinine Ratio 16.7 (6-22); Bilirubin Total 0.3 mg/dL (0.2-1.3); Blood Urea Nitrogen 10 mg/dL (7-17); Calcium 8.7 mg/dL (8.4-10.2); Carbon Dioxide 25 mmol/L (22-32); Chloride 103 mmol/L (98-107); Estimated Glomerular Filt Rate > 60 mL/min (>60); Globulin 2.7 g/dL (1.7-4.1); Glucose 94 mg/dL (70-100); HEMOLYSIS < 15 (0-50); Lipase 148 U/L (23-300); Potassium 3.9 mmol/L (3.4-5.1); Sodium 139 mmol/L (137-145); Total Protein 7.1 g/dL (6.3-8.2)
--- NOTE | 2024-10-07 15:00 | DI.CT.S_ITS ---
PROCEDURE: CT ABDOMEN PELVIS W CON INDICATIONS: abd pain R>L, acute on chronic TECHNIQUE: After the administration of intravenous contrast, axial sections acquired from the lung bases to the pubic symphysis. Coronal and sagittal reformats were performed. For radiation dose reduction, the following was used: automated exposure control, adjustment of mA and/or kV according to patient size. COMPARISON: [facility], CT, CT ABDOMEN PELVIS W CON, 08/07/2024, 17:30. FINDINGS: Image quality: Diagnostic. Lower Chest: No significant findings. ABDOMEN: Liver: No solid mass. Gallbladder: No radiopaque gallstones or wall thickening. Biliary ducts: No biliary dilation. Pancreas: No ductal dilation. Spleen: Size is within normal limits. Adrenal Glands: No adrenal nodules. Kidneys and Ureters: No hydronephrosis. No solid mass. No complex renal cystic lesion which requires follow up. Stomach and Bowel: Normal colonic caliber, without significant wall thickening. Peritoneum: No abnormal intraperitoneal fluid. No free air. Ventral Wall: No significant ventral hernia. Abdominal Nodes: No retroperitoneal or mesenteric adenopathy by size criteria. Vessels: Aorta and inferior vena cava are normal in size. PELVIS: Pelvic Organs: Unremarkable. Bladder: No bladder wall thickening, accounting for underdistention. Pelvic Nodes: No enlarged lymph nodes. Miscellaneous: No inguinal hernias are seen. Bones: No aggressive osseous abnormality. IMPRESSION: No CT evidence for the etiology of the patient's symptoms. Specifically, no appendicitis, diverticulitis, urolithiasis, or obstruction. Dictated by: Lidia Hall M.D. on 10/07/2024 at 15:34 Approved by: Lidia Hall M.D. on 10/07/2024 at 15:37
[2024-10-07 15:15] LABS: Pregnancy Test Urine Negative (Negative)
[2024-10-07] MEDS: PROCHLORPERAZINE 10 MG/2 ML VIAL IV (15:58)
== END 2024-10-07 17:30 | disposition home or self-care (01) ==
PROVIDERS: Emergency Provider Emergency Medicine
DX: R10.9 Unspecified abdominal pain (principal); R11.2 Nausea with vomiting, unspecified; Z87.891 Personal history of nicotine dependence
CPT/HCPCS: 36415; 74177; 80053; 81003; 81025; 83690; 85025; 96374; 99284; J0780; Q9967

== ENCOUNTER 2025-02-04 21:01 | Emergency (ER) | payer OTHER, SELFPAY ==
[2025-02-04 21:10] VITALS: BP 153/97; PULSE 83; RESP 18; TEMP 36.4; O2SAT 97; BMI 31.2
--- NOTE | 2025-02-04 21:39 | DI.CT.S_ITS ---
PROCEDURE: CT HEAD/BRAIN WO CON INDICATIONS: Severe FRANCIS c dizziness, tingling, vision changes for 4 month TECHNIQUE: Noncontrast 4.5 mm thick angled axial sections acquired from the foramen magnum to the vertex, with coronal and sagittal reformats. For radiation dose reduction, the following was used: automated exposure control, adjustment of mA and/or kV according to patient size. COMPARISON: [facility], CT, CT HEAD/BRAIN WO CON, 04/29/2024, 21:15. FINDINGS: Image quality: Diagnostic. CSF spaces: Basal cisterns are patent. No extra-axial fluid collections. Ventricles are normal in size and shape. Brain: No midline shift. No intracranial mass effect or hemorrhage. Mcgovern- white matter interface is normal. Skull and face: Calvarium and visualized facial bones are intact, without suspicious lesions. Sinuses: Visualized sinuses and mastoids are clear. IMPRESSION: No acute intracranial pathology. Dictated by: Leana Whitaker M.D. on 02/04/2025 at 22:00 Approved by: Leana Whitaker M.D. on 02/04/2025 at 22:01
--- NOTE | 2025-02-04 22:34 | ED_ITS ---
HPI - Headache General Chief Complaint: Headache Stated Complaint: Headache,neck+[id number] N/V eye sensitivity Time Seen by Provider: 02/04/25 21:38 Mode of arrival: Ambulatory History of Present Illness HPI Narrative: 29-year-old female with ongoing head and neck problems, also back pain for the last few months, increased headache since yesterday with nausea and vomiting, some photophobia. Previous injectable medications do not seem to be helpful, she is not seem to elicit any particular helpful regimen. No focal weakness to face arm or leg. No focal numbness to face arm or leg. No injury or trauma. Related Data Previous Rx's ?Medication ?Instructions ?Recorded hydrocodone 5 mg-acetaminophen 325 1 tab PO Q8H PRN pa in #7 tabs 11/13/23 mg tablet sulfamethoxazole 800 1 tab PO Q12H #14 tabs 11/12 mg-trimethoprim 160 mg tablet (Bactrim DS) metoclopramide HCl 10 mg tablet 10 mg PO Q6H PRN nause a and 08/07/24 (Reglan) vomiting #20 tabs methocarbamol 500 mg tablet 500 mg PO TID 7 days #21 t abs 02/05/25 Allergies Allergy/AdvReac Type Severity Reaction Status Date / Time hydrocodone Allergy Do not Verified 02/04/25 21:15 prescribe nickel Allergy Anaphylaxis Verified 02/04/25 21:15 lurasidone (From Latuda) AdvReac Hives Verified 02/04/25 21:15 Patient History Social History Smoking Status: Former smoker Smoking Status: Former smoker tobacco type: vaping alcohol intake frequency: a few times a month Exam Narrative Exam Narrative: GENERAL: Well-developed patient, in mild distress. HEAD: Atraumatic. Normocephalic. EYES: Pupils equal round and reactive. Extraocular motions intact. No scleral icterus. No injection or drainage. ENT: Nose without bleeding, purulent drainage. Throat without erythema, tonsillar hypertrophy or exudate. Airway patent. NECK: Trachea midline. Non tender CARDIOVASCULAR: Regular rate and rhythm without murmurs, gallops, or rubs. RESPIRATORY: Clear to auscultation. Breath sounds equal bilaterally. No wheezes, rales, or rhonchi. GASTROINTESTINAL: Abdomen soft, non-tender, nondistended. EXTREMITIES: No edema or joint tenderness. BACK: Nontender without deformity or crepitance. No flank tenderness. NEURO: AOx3. Motor functions grossly nonfocal. SKIN: No rash or erythema of visible areas Initial Vital Signs Initial Vital Signs: Vital Signs Temperature 97.6 F 02/04/25 21:10 Pulse Rate 83 02/04/25 21:10 Respiratory Rate 18 02/04/25 21:10 Blood Pressure 153/97 H 02/04/25 21:10 Pulse Oximetry 97 02/04/25 21:10 Oxygen Delivery Method Room Air 02/04/25 21:10 Course Orders Ordered: ED Orders 02/04/25 21:39 CT head/brain wo con Stat Discontinued Medications Dexamethasone (Dexamethasone 10 Mg/Ml Vial) 10 mg IV NOW ONE Stop: 02/04/25 22:34 Last Admin: 02/04/25 22:53 Dose: 10 mg Documented By: EVANGELINA Diphenhydramine HCl (Diphenhydramine 50 Mg/Ml Vial) 25 mg IV NOW ONE Stop: 02/04/25 22:34 Last Admin: 02/04/25 22:53 Dose: 25 mg Documented By: EVANGELINA Sodium Chloride (Normal Saline 0.9%) 1,000 mls @ 1,000 mls/hr IV BOLUS ONE Stop: 02/04/25 23:32 Last Infusion: 02/05/25 00:01 Dose: Infused Documented By: Admin: 02/04/25 22:53 Dose: 1,000 mls/hr Documented By: EVANGELINA Ketorolac Tromethamine (Ketorolac 30 Mg/Ml Vial) 30 mg IV NOW ONE Stop: 02/04/25 22:34 Last Admin: 02/04/25 22:54 Dose: 30 mg Documented By: EVANGELINA Prochlorperazine (Prochlorperazine 10 Mg/2 Ml Vial) 10 mg IV NOW ONE Stop: 02/04/25 22:34 Last Admin: 02/04/25 22:54 Dose: 10 mg Documented By: EVANGELINA Vital Signs Vital signs: Vital Signs - 8 hr 02/04/25 21:10 02/04/25 22:54 02/04/25 23:00 Temperature 97.6 F Pulse Rate 83 82 78 Respiratory Rate 18 14 Blood Pressure 153/97 H 143/85 H 141/89 H Pulse Oximetry 97 96 Oxygen Delivery Method Room Air Room Air 02/04/25 23:30 Temperature Pulse Rate 65 Respiratory Rate 16 Blood Pressure 121/79 Pulse Oximetry 95 Oxygen Delivery Method Room Air MDM - Headache Lab Data Attestation: I reviewed the patient's lab results. Lab results narrative: POC glucose 153. Labs: Lab Results 02/04/25 Range/Units 22:44 POC Whole Bld Glucose 153 H (70-99) mg/dL MDM Narrative Medical decision making narrative: 29-year-old female with recurrent headaches, says lots of things do not seem to work for her, but does not seem to offer up anything that does work for her. Has been prescribed hydrocodone in the past. We will avoid opiates for now. In triage apparently she press interested in having imaging. CT head has been ordered after discussion with triage nursing. This was performed and showed no acute changes. Patient is still having headache, interested in trying headache cocktail when regimen described. Combination IV fluid saline bolus, Compazine, Benadryl, To radol, Decadron. 0030, headache gone, feels much better. Still has tension in her trapezius muscles. Doubt need for LP. Might be having cyclic pattern of upper muscle tension headache that is setting off vascular/migraine headache. Trial of Robaxin for a few tablets to see if this helps her upper trapezius related discomfort. No midline cervical rigidity, no neck stiffness. Prescription for Robaxin sent to pharmacy. Home with family. Discharge Plan Departure Patient Disposition: Home Clinical Impression: Headache, Spasm of both trapezius muscles Activity Restrictions/Additional Instructions: Reported recurrent headaches, often not responsive to various treatments, not obvious what treatment regimen really works however. CT head no acute changes, no masses or hydrocephalus changes. Offered headache cocktail trial: 1 L normal saline IV fluid, Compazine 5 mg IV, Benadryl 50 mg IV, dexamethasone 10 mg IV, Toradol 15 mg IV. You seemed to have good response to this regimen. Unclear in the future if you would need all the components of this regimen but it did seem to be helpful if needs to be tried again in the future. On examination you seemed to have some persisting spasm symptoms of the superior trapezius musculature. It might be possible that you are having muscle tension posterior headaches that are setting off migraine/vascular headaches. Trial of muscle relaxant to see if this helps your trapezius symptoms, and hopefully reduces your risks for recurrent headache. Prescription for Robaxin/methocarbamol sent to your pharmacy. Do not drive or operate machinery while on muscle relaxant medication. Recheck symptoms with your regular doctor this next week. Return to this/nearest emergency department for any change worsening symptoms or any concerns prior. Prescriptions: New methocarbamol 500 mg tablet 500 mg PO TID 7 Days Qty: 21 0RF No Action metoclopramide HCl [Reglan] 10 mg tablet 10 mg PO Q6H PRN (Reason: nausea and vomiting) Qty: 20 0RF hydrocodone-acetaminophen 5-325 mg tablet 1 tab PO Q8H PRN (Reason: pain) Qty: 7 0RF sulfamethoxazole-trimethoprim [Bactrim DS] 800-160 mg tablet 1 tab PO Q12H Qty: 14 0RF Referrals: ProviderBryant [Primary Care Provider, Family Practice] Stand Alone Forms: Patient Portal/API
[2025-02-04] MEDS: DEXAMETHASONE 10 MG/ML VIAL IV (22:53)
[2025-02-04] MEDS: SODIUM CHLORIDE 0.9% 1,000 ML 1000 ML IV (22:53)
[2025-02-04] MEDS: diphenhydrAMINE 50 MG/ML VIAL 25 MG IV (22:53)
[2025-02-04 22:54] VITALS: BP 143/85; PULSE 82
[2025-02-04] MEDS: PROCHLORPERAZINE 10 MG/2 ML VIAL IV (22:54)
[2025-02-04] MEDS: KETOROLAC 30 MG/ML VIAL IV (22:54)
[2025-02-04 23:00] VITALS: BP 141/89; PULSE 78; RESP 14; O2SAT 96
[2025-02-04 23:30] VITALS: BP 121/79; PULSE 65; RESP 16; O2SAT 95
--- NOTE | 2025-02-05 00:01 | PC.NURSE ---
Pt ambulatory to restroom without difficulty or assistance. Taking po fluids wihtout difficulty. States she is feeling much better.
== END 2025-02-05 00:38 | disposition home or self-care (01) ==
PROVIDERS: Emergency Provider Emergency Medicine
DX: R51.9 Headache, unspecified (principal); M62.830 Muscle spasm of back; R11.2 Nausea with vomiting, unspecified
CPT/HCPCS: 36415; 70450; 82962; 96361; 96374; 96375; 99284; J0780; J1100; J1200; J1885

== ENCOUNTER → 2025-02-15 08:22 | Outpatient (CLI) | payer OTHER, SELFPAY ==
--- NOTE | 2025-02-15 08:23 | DI.US.S_ITS ---
PROCEDURE: US ABDOMEN LIMITED INDICATIONS: Nausea and vomitting TECHNIQUE: Real-time scanning was performed of the abdominal and retroperitoneal organs, with image documentation. COMPARISON: None. FINDINGS: Liver: Liver is mildly enlarged and measures 18.5 cm in length. Normal liver parenchymal echotexture is seen. Gallbladder: No gallstones. No gallbladder wall thickening or pericholecystic fluid. No sonographic Azul sign. Biliary ducts: Intrahepatic bile ducts are non-dilated. Extrahepatic bile duct caliber measures 4.6 mm. Normal is 6-7 mm or less in diameter, or 10 mm or less post-cholecystectomy. Pancreas: Visualized portions of the pancreas are sonographically normal. Miscellaneous: No free abdominal fluid. IMPRESSION: 1. Mild hepatomegaly. No discrete hepatic lesion. Normal liver parenchymal echotexture. 2. Rest of the exam is unremarkable. Dictated by: Tobias Diego M.D. on 02/15/2025 at 12:23 Approved by: Tobias Diego M.D. on 02/15/2025 at 12:24
== END ==
PROVIDERS: PCP Nurse Practitioner Family; Referring Provider Surgery; Visit Provider Surgery
DX: R11.2 Nausea with vomiting, unspecified (principal); R10.9 Unspecified abdominal pain; R16.0 Hepatomegaly, not elsewhere classified
CPT/HCPCS: 76705

== ENCOUNTER 2025-03-05 19:38 | Emergency (ER) | payer OTHER, SELFPAY ==
[2025-03-05] VITALS (15 sets, daily range): BP systolic 88–123; BP diastolic 51–79; PULSE 72–92; RESP 13–19; TEMP 36.8; O2SAT 94–98; BMI 31.2
--- NOTE | 2025-03-05 20:13 | DI.RAD.S_ITS ---
PROCEDURE: XR CHEST 1V INDICATIONS: Possible stroke TECHNIQUE: One view of the chest was acquired. COMPARISON: None. FINDINGS: Surgical changes and devices: None. Lungs and pleura: Lungs are clear. No pleural effusions or pneumothorax. Mediastinum: Mediastinal contours appear normal. Heart size is normal. Bones and chest wall: No suspicious bony lesions. Overlying soft tissues appear unremarkable. IMPRESSION: No acute cardiopulmonary abnormality is seen. Dictated by: Adonis Recio M.D. on 03/05/2025 at 21:30 Approved by: Adonis Recio M.D. on 03/05/2025 at 21:30
--- NOTE | 2025-03-05 20:13 | DI.CT.S_ITS ---
PROCEDURE: CT ANGIO HEAD AND NECK INDICATIONS: left side weakness, blurred vision TECHNIQUE: After the administration of intravenous contrast, 1 mm thick sections acquired from the aortic arch through the [place] of [place]. 3-dimensional bhkuuic-enwkapltf-sdxcevddfz (MIP) and/or volume rendering reformats were acquired of the central intracranial vasculature and neck separately. For radiation dose reduction, the following was used: automated exposure control, adjustment of mA and/or kV according to patient size. COMPARISON: None. FINDINGS: Image quality: Diagnostic. Cerebral CT Angiogram: Internal carotid arteries: No acute findings. Intracranial ICA are patent with no significant stenosis. No occlusion. No aneurysm. Anterior cerebral arteries: Unremarkable. No significant stenosis. No occlusion. No aneurysm. Middle cerebral arteries: Unremarkable. No significant stenosis. No occlusion. No aneurysm. Posterior cerebral arteries: Unremarkable. No significant stenosis. No occlusion. No aneurysm. Basilar artery: Unremarkable. No significant stenosis. No occlusion. No aneurysm. Vertebral arteries: Unremarkable as visualized. Dural venous sinuses: Unremarkable given phase of enhancement. Other: Arterial phase appearance of the brain parenchyma is unremarkable. Neck CT Angiogram: Internal carotid arteries: Unremarkable. No significant stenosis. No dissection or occlusion. Common carotid arteries: Unremarkable. No significant stenosis. No dissection or occlusion. External carotid arteries: Unremarkable. No occlusion. Vertebral arteries: Unremarkable. No significant stenosis. No dissection or occlusion. Aortic Arch and Mediastinum: Partially visualized aortic arch unremarkable without evidence of aneurysm. Origins of the great vessels unremarkable. Other: Arterial phase soft tissues of the neck and chest are unremarkable. IMPRESSION: No significant intracranial arterial abnormality is seen. No significant abnormality is seen within the arteries of the neck. Any quantitative measurements of stenosis were performed using NASCET criteria. Dictated by: Adonis Recio M.D. on 03/05/2025 at 21:11 Approved by: Adonis Recio M.D. on 03/05/2025 at 21:14
[2025-03-05] MEDS: ONDANSETRON 4 MG/2 ML INJ IV (20:15)
--- NOTE | 2025-03-05 20:25 | ED_ITS ---
HPI - Neuro Symptoms/Deficit General Chief Complaint: Neuro Symptoms/Deficit Stated Complaint: stomach pain left side tingling left eye blurry Time Seen by Provider: 03/05/25 20:22 Source: patient Mode of arrival: Ambulatory History of Present Illness HPI Narrative: 29-year-old female with reported history of seizure disorder, no neuroleptic medications recently taking, having left-sided facial droop, triage complaint of left sided tingling and left eye blurriness. No to have shaking episode shortly after arrival. No other history available. On Anticoagulants: No Related Data Home Medications ?Medication ?Instructions ?Recorded ?Confirmed acetaminophen 500 mg/15 mL oral 500 mg PO ONCE 5 02/05/25 liquid ferrous sulfate 325 mg (65 mg 325 mg PO Q OTHER DAY 02/05/25 iron) tablet,delayed release metformin 500 mg tablet 500 mg PO BID 02/05/2502/05 omeprazole 20 mg capsule,delayed 20 mg PO BID 02/05/25 02/05/25 release Allergies Allergy/AdvReac Type Severity Reaction Status Date / Time hydrocodone Allergy Do not Verified 03/05/25 20:16 prescribe nickel Allergy Anaphylaxis Verified 03/05/25 20:16 lurasidone (From Latuda) AdvReac Hives Verified 03/05/25 20:16 Review of Systems Hematologic/Lymphatic On Anticoagulants: No Patient History Social History (Updated 02/05/25 @ 15:40 by Daniel Dorman MA) marital status: occupational status: unemployed and other tobacco type: vaping alcohol intake frequency: a few times a month Exam Narrative Exam Narrative: GENERAL: Patient 1st seen by me while in the CT scanner having shaking episodes, as I was some onto evaluate patient there. HEAD: Atraumatic. Normocephalic. EYES: Pupils equal round and reactive. Extraocular motions intact. No scleral icterus. No injection or drainage. ENT: Nose without bleeding, purulent drainage. No obvious facial trauma. Airway patent. NECK: Trachea midline. Non tender CARDIOVASCULAR: Regular rate and rhythm without murmurs, gallops, or rubs. RESPIRATORY: Clear to auscultation. Breath sounds equal bilaterally. No wheezes, rales, or rhonchi. GASTROINTESTINAL: Abdomen soft, non-tender, nondistended. EXTREMITIES: No edema or joint tenderness. BACK: Nontender without deformity or crepitance. No flank tenderness. NEURO: AOx3. In CT scanner patient seemed to be exhibiting shaking activity, but with alternating leg movements and bucking of torso movements, atypical for tonic-clonic seizure-like activity. SKIN: No rash or erythema of visible areas Initial Vital Signs Initial Vital Signs: Vital Signs Temperature 98.3 F 03/05/25 20:07 Pulse Rate 86 03/05/25 20:07 Respiratory Rate 18 03/05/25 20:07 Blood Pressure 123/79 03/05/25 20:07 Pulse Oximetry 98 03/05/25 20:07 Oxygen Delivery Method Room Air 03/05/25 20:07 Course Orders Ordered: Discontinued Medications Diazepam (Diazepam 10 Mg/2 Ml Syringe) 5 mg IV NOW ONE Stop: 03/05/25 20:23 Last Admin: 03/05/25 20:22 Dose: 5 mg Documented By: JOSEPH Diazepam (Diazepam 10 Mg/2 Ml Syringe) 5 mg IV NOW ONE Stop: 03/05/25 20:53 Last Admin: 03/05/25 20:52 Dose: 5 mg Documented By: JOSEPH Haloperidol (Haloperidol 5 Mg/Ml Vial) 5 mg IV NOW ONE Stop: 03/05/25 20:53 Last Admin: 03/05/25 20:52 Dose: 5 mg Documented By: JOSEPH Levetiracetam 2,000 mg/ Sodium (Chloride) 120 mls @ 480 mls/hr IV NOW ONE Stop: 03/05/25 20:23 Last Infusion: 03/05/25 20:38 Dose: Infused Documented By: Admin: 03/05/25 20:22 Dose: 480 mls/hr Documented By: JOSEPH Sodium Chloride (Normal Saline 0.9%) 1,000 mls @ 1,000 mls/hr IV BOLUS ONE Stop: 03/05/25 22:45 Last Infusion: 03/05/25 22:58 Dose: Infused Documented By: Admin: 03/05/25 21:51 Dose: 1,000 mls/hr Documented By: JOSEPH Ondansetron HCl (Ondansetron 4 Mg/2 Ml Inj) 4 mg IV NOW PRN PRN Reason: Nausea And Vomiting Last Admin: 03/05/25 20:15 Dose: 4 mg Documented By: JOSEPH Ondansetron HCl (Ondansetron 4 Mg Odt) 4 mg PO NOW PRN PRN Reason: Nausea And Vomiting Vital Signs Vital signs: Vital Signs - 8 hr 03/05/25 21:40 03/05/25 21:40 03/05/25 21:50 Pulse Rate 80 79 Respiratory Rate 15 17 Blood Pressure 88/51 L Pulse Oximetry 97 98 Oxygen Delivery Method Nasal Cannula Oxygen Flow Rate 2 03/05/25 21:50 03/05/25 22:00 03/05/25 22:00 Pulse Rate 79 Respiratory Rate 16 Blood Pressure 99/56 L 101/55 L Pulse Oximetry 98 Oxygen Delivery Method Oxygen Flow Rate 03/05/25 22:30 03/05/25 22:30 03/05/25 23:02 Pulse Rate 74 84 Respiratory Rate 17 Blood Pressure 97/62 Pulse Oximetry 98 Oxygen Delivery Method Nasal Cannula Oxygen Flow Rate 2 03/05/25 23:04 03/05/25 23:04 03/05/25 23:30 Pulse Rate 76 72 Respiratory Rate 19 13 Blood Pressure 113/72 Pulse Oximetry 94 95 Oxygen Delivery Method Room Air Oxygen Flow Rate 03/05/25 23:30 03/06/25 00:00 03/06/25 00:00 Pulse Rate 78 Respiratory Rate 16 Blood Pressure 103/55 L 106/58 L Pulse Oximetry 93 Oxygen Delivery Method Room Air Oxygen Flow Rate 03/06/25 00:30 03/06/25 00:30 03/06/25 01:00 Pulse Rate 73 69 Respiratory Rate 15 16 Blood Pressure 92/53 L Pulse Oximetry 93 94 Oxygen Delivery Method Room Air Oxygen Flow Rate 03/06/25 01:00 03/06/25 01:30 03/06/25 01:34 Pulse Rate 64 66 Respiratory Rate 15 16 Blood Pressure 90/53 L Pulse Oximetry 93 97 Oxygen Delivery Method Room Air Oxygen Flow Rate 03/06/25 01:34 03/06/25 02:00 03/06/25 02:00 Pulse Rate 73 Respiratory Rate 16 Blood Pressure 93/60 93/58 L Pulse Oximetry 94 Oxygen Delivery Method Room Air Oxygen Flow Rate 03/06/25 02:30 03/06/25 02:30 03/06/25 03:00 Pulse Rate 74 70 Respiratory Rate 14 15 Blood Pressure 102/55 L Pulse Oximetry 95 95 Oxygen Delivery Method Room Air Oxygen Flow Rate 03/06/25 03:00 03/06/25 03:30 03/06/25 03:30 Pulse Rate 72 Respiratory Rate 16 Blood Pressure 96/56 L 97/54 L Pulse Oximetry 95 Oxygen Delivery Method Oxygen Flow Rate 03/06/25 04:01 03/06/25 04:02 03/06/25 04:02 Pulse Rate 84 79 Respiratory Rate 18 18 Blood Pressure 124/69 Pulse Oximetry 97 97 Oxygen Delivery Method Room Air Oxygen Flow Rate 03/06/25 04:30 03/06/25 04:30 03/06/25 05:00 Pulse Rate 66 66 Respiratory Rate 14 14 Blood Pressure 104/63 Pulse Oximetry 95 97 Oxygen Delivery Method Room Air Room Air Oxygen Flow Rate 03/06/25 05:00 Pulse Rate Respiratory Rate Blood Pressure 101/60 Pulse Oximetry Oxygen Delivery Method Oxygen Flow Rate MDM - Neuro Symptoms/Deficit Lab Data Attestation: I reviewed the patient's lab results. Lab results narrative: White blood cell count 7900, hemoglobin 13.3, platelets adequate. Glucose 156. Renal function, serum CO2, electrolytes unremarkable. Liver functions normal. Troponin negative. 03/05/25 20:15 03/05/25 20:15 Labs: Lab Results 03/05/25 03/05/25 03/05/25 Range/Units 20:12 20:15 23:07 WBC 7.9 (4.5-11.0) X10^3/uL RBC 4.72 (4.0-5.2) X10^6/uL Hgb 13.3 (12.0-16.0) g/dL Hct 40.1 (36-46) % MCV 85.1 (80-100) fL MCH 28.1 (26-34) PG MCHC 33.1 (30-36) % RDW 14.2 (11.6-14.8) % Plt Count 247 (150-400) X10^3/uL Neut % (Auto) 47.3 L (50-75) % Lymph % (Auto) 45.5 H (25-40) % [place] % (Auto) 5.7 (3-14) % Eos % (Auto) 1.1 L (2-4) % Baso % (Auto) 0.4 (0-2) % Neut # (Auto) 3800 (7966-8743) /uL Lymph # (Auto) 3600 (8454-6626) /uL [place] # (Auto) 500 (0-900) /uL Eos # (Auto) 100 (0-450) /uL Baso # (Auto) 0 (0-100) /uL PT 10.5 (9.4-12.5) SECONDS INR 0.9 (0.9-1.3) APTT 32 (25.1-36.5) SECONDS Sodium 139 (137-145) mmol/L Potassium 4.4 (3.4-5.1) mmol/L Chloride 101 (98-107) mmol/L Carbon Dioxide 27 (22-32) mmol/L BUN 9 (7-17) mg/dL Creatinine 0.59 (0.52-1.04) mg/dL Estimated GFR > 60 (>60) mL/min BUN/Creatinine Ratio 15.3 (6-22) Glucose 156 H (70-99) mg/dL POC Whole Bld Glucose 159 H (70-99) mg/dL Calcium 9.7 (8.4-10.2) mg/dL Total Bilirubin 0.2 (0.2-1.3) mg/dL AST 29 (14-36) IU/L ALT 23 (<35) IU/L Alkaline Phosphatase 58 (38-126) U/L Total Creatine Kinase 130 (30-135) U/L Troponin I < 0.012 (0.01-0.034) ng/mL Total Protein 8.4 H (6.3-8.2) g/dL Albumin 4.9 (3.5-5.0) g/dL Globulin 3.5 (1.7-4.1) g/dL Albumin/Globulin Ratio 1.4 (1.0-2.8) Urine Color Yellow Urine Appearance Clear Urine pH 6.0 (4.5-8.0) Ur Specific [place] <=1.005 (1.000-1.035) Urine Protein Negative (Negative) Urine Glucose (UA) Negative (Negative) g/dL Urine Ketones Negative (NEGATIVE) Urine Occult Blood Negative (Negative) Urine Nitrate Negative (Negative) Urine Bilirubin Negative (NEGATIVE) Urine Urobilinogen 0.2 (0.2) E.U./dL Ur Leukocyte Esterase Negative (NEGATIVE) Urine RBC None seen (0-5/HPF) Urine WBC None seen (0-5/HPF) Ur Squamous Epith Cells 1-5 /hpf (0-5/HPF) Urine Bacteria None seen (None) Ur Culture Indicated? Cult not indicated Vol Urine Centrifuged 10ml (spun) U Opiates 300ng/mL cut Negative (Negative) Ur Oxycodone Screen Negative (Negative) Urine Methadone Screen Negative (Negative) Ur Barbiturates Screen Negative (Negative) U Tricyclic Antidepress Negative (Negative) Ur Phencyclidine Scrn Negative (Negative) Ur Amphetamines Screen Negative (Negative) U Methamphetamines Scrn Negative (Negative) Ur MDMA Scrn (Ecstasy) Negative (Negative) U Benzodiazepines Scrn Negative (Negative) Urine Cocaine Screen Negative (Negative) U Marijuana (THC) Screen Negative (Negative) Urine Specific [place] (Normal) Ur Creatinine (Normal) 03/05/25 Range/Units 23:07 WBC (4.5-11.0) X10^3/uL RBC (4.0-5.2) X10^6/uL Hgb (12.0-16.0) g/dL Hct (36-46) % MCV (80-100) fL MCH (26-34) PG MCHC (30-36) % RDW (11.6-14.8) % Plt Count (150-400) X10^3/uL Neut % (Auto) (50-75) % Lymph % (Auto) (25-40) % [place] % (Auto) (3-14) % Eos % (Auto) (2-4) % Baso % (Auto) (0-2) % Neut # (Auto) (6864-7674) /uL Lymph # (Auto) (0647-5939) /uL [place] # (Auto) (0-900) /uL Eos # (Auto) (0-450) /uL Baso # (Auto) (0-100) /uL PT (9.4-12.5) SECONDS INR (0.9-1.3) APTT (25.1-36.5) SECONDS Sodium (137-145) mmol/L Potassium (3.4-5.1) mmol/L Chloride (98-107) mmol/L Carbon Dioxide (22-32) mmol/L BUN (7-17) mg/dL Creatinine (0.52-1.04) mg/dL Estimated GFR (>60) mL/min BUN/Creatinine Ratio (6-22) Glucose (70-99) mg/dL POC Whole Bld Glucose (70-99) mg/dL Calcium (8.4-10.2) mg/dL Total Bilirubin (0.2-1.3) mg/dL AST (14-36) IU/L ALT (<35) IU/L Alkaline Phosphatase (38-126) U/L Total Creatine Kinase (30-135) U/L Troponin I (0.01-0.034) ng/mL Total Protein (6.3-8.2) g/dL Albumin (3.5-5.0) g/dL Globulin (1.7-4.1) g/dL Albumin/Globulin Ratio (1.0-2.8) Urine Color Urine Appearance Urine pH Normal (4.5-8.0) Ur Specific [place] (1.000-1.035) Urine Protein (Negative) Urine Glucose (UA) (Negative) g/dL Urine Ketones (NEGATIVE) Urine Occult Blood (Negative) Urine Nitrate (Negative) Urine Bilirubin (NEGATIVE) Urine Urobilinogen (0.2) E.U./dL Ur Leukocyte Esterase (NEGATIVE) Urine RBC (0-5/HPF) Urine WBC (0-5/HPF) Ur Squamous Epith Cells (0-5/HPF) Urine Bacteria (None) Ur Culture Indicated? Vol Urine Centrifuged U Opiates 300ng/mL cut (Negative) Ur Oxycodone Screen (Negative) Urine Methadone Screen (Negative) Ur Barbiturates Screen (Negative) U Tricyclic Antidepress (Negative) Ur Phencyclidine Scrn (Negative) Ur Amphetamines Screen (Negative) U Methamphetamines Scrn (Negative) Ur MDMA Scrn (Ecstasy) (Negative) U Benzodiazepines Scrn (Negative) Urine Cocaine Screen (Negative) U Marijuana (THC) Screen (Negative) Urine Specific [place] Normal (Normal) Ur Creatinine Normal (Normal) Urine Dip Bedside Urine Glucose Negative Bedside Urine Bilirubin - Negative Bedside Urine Ketone - Negative Urine Specific [place] 1.005 Bedside Urine Occult Blood - Negative Bedside Urine pH 6.0 Bedside Urine Protein - Negative Bedside Urine Urobilinogen - Negative Bedside Urine Nitrite - Negative Bedside Urine Leukocytes - Negative Esterase Imaging Data CT scan - head: Radiologist's Impression: [address] [address] [address] Scan Report Signed Patient: Ysabel Bañuelos MR#: [id number] : 1995 Acct:[id number] Age/Sex: 29 / F Date of Service: 03/05/25 Loc: ED Accession Number: [id number] Procedure: CT head/brain wo con Ordering Provider: Rasheed Murray MD PROCEDURE: CT HEAD/BRAIN WO CON INDICATIONS: Seizure TECHNIQUE: Noncontrast 4.5 mm thick angled axial sections acquired from the foramen magnum to the vertex, with coronal and sagittal reformats. For radiation dose reduction, the following was used: automated exposure control, adjustment of mA and/or kV according to patient size. COMPARISON: [facility], CT, CT HEAD/BRAIN WO CON, 02/04/2025, 21:46. FINDINGS: Image quality: Diagnostic. CSF spaces: Basal cisterns are patent. No extra-axial fluid collections. Ventricles are normal in size and shape. Brain: No midline shift. No intracranial mass effect or hemorrhage. [place]- white matter interface is normal. Skull and face: Calvarium and visualized facial bones are intact, without suspicious lesions. Sinuses: Visualized sinuses and mastoids are clear. IMPRESSION: No acute intracranial pathology. Dictated by: Adonis Recio M.D. on 03/05/2025 at 21:09 Approved by: Adonis Recio M.D. on 03/05/2025 at 21:11 CTA - brain/neck: Radiologist's Impression: [place] [address] CT Scan Report Signed Patient: Ysabel Bañuelos MR#: [id number] : 1995 Acct:[id number] Age/Sex: 29 / F Date of Service: 03/05/25 Loc: ED Accession Number: [id number] Procedure: CT angio head and neck Ordering Provider: Rasheed Murray MD PROCEDURE: CT ANGIO HEAD AND NECK INDICATIONS: left side weakness, blurred vision TECHNIQUE: After the administration of intravenous contrast, 1 mm thick sections acquired from the aortic arch through the [place] of [place]. 3-dimensional ltzzurm-adbjnqpnx-pswbjnkzzx (MIP) and/or volume rendering reformats were acquired of the central intracranial vasculature and neck separately. For radiation dose reduction, the following was used: automated exposure control, adjustment of mA and/or kV according to patient size. COMPARISON: None. FINDINGS: Image quality: Diagnostic. Cerebral CT Angiogram: Internal carotid arteries: No acute findings. Intracranial ICA are patent with no significant stenosis. No occlusion. No aneurysm. Anterior cerebral arteries: Unremarkable. No significant stenosis. No occlusion. No aneurysm. Middle cerebral arteries: Unremarkable. No significant stenosis. No occlusion. No aneurysm. Posterior cerebral arteries: Unremarkable. No significant stenosis. No occlusion. No aneurysm. Basilar artery: Unremarkable. No significant stenosis. No occlusion. No aneurysm. Vertebral arteries: Unremarkable as visualized. Dural venous sinuses: Unremarkable given phase of enhancement. Other: Arterial phase appearance of the brain parenchyma is unremarkable. Neck CT Angiogram: Internal carotid arteries: Unremarkable. No significant stenosis. No dissection or occlusion. Common carotid arteries: Unremarkable. No significant stenosis. No dissection or occlusion. External carotid arteries: Unremarkable. No occlusion. Vertebral arteries: Unremarkable. No significant stenosis. No dissection or occlusion. Aortic Arch and Mediastinum: Partially visualized aortic arch unremarkable without evidence of aneurysm. Origins of the great vessels unremarkable. Other: Arterial phase soft tissues of the neck and chest are unremarkable. IMPRESSION: No significant intracranial arterial abnormality is seen. No significant abnormality is seen within the arteries of the neck. Any quantitative measurements of stenosis were performed using NASCET criteria. Dictated by: Adonis Recio M.D. on 03/05/2025 at 21:11 Approved by: Adonis Recio M.D. on 03/05/2025 at 21:14 Chest x-ray: Radiologist's Impression: [place] [address] XRay Report Signed Patient: Ysabel Bañuelos MR#: [id number] : 1995 Acct:[id number] Age/Sex: 29 / F Date of Service: 03/05/25 Loc: ED Accession Number: [id number] Procedure: XR chest 1V Ordering Provider: Rasheed Murray MD PROCEDURE: XR CHEST 1V INDICATIONS: Possible stroke TECHNIQUE: One view of the chest was acquired. COMPARISON: None. FINDINGS: Surgical changes and devices: None. Lungs and pleura: Lungs are clear. No pleural effusions or pneumothorax. Mediastinum: Mediastinal contours appear normal. Heart size is normal. Bones and chest wall: No suspicious bony lesions. Overlying soft tissues appear unremarkable. IMPRESSION: No acute cardiopulmonary abnormality is seen. Dictated by: Adonis Recio M.D. on 03/05/2025 at 21:30 Approved by: Adonis Recio M.D. on 03/05/2025 at 21:30 [facility] Narrative Medical decision making narrative: 29-year-old female with reported seizure disorder, no neuroleptic medications on triage med list, having left-sided numbness and left eye blurred vision on triage, left facial droop concern by nursing at triage. CT head ordered. In the CT scanner she started having shaking activity, when I arrived it seemed to be alternating movements of the lower extremities, sometimes bucking movements of the torso, atypical for tonic-clonic activity. Patient had received Valium 5 mg IV x2 doses in seemed to persist in this activity. IV Keppra 2 g load. Patient is still thrashing about but on my evaluation in the CT suite she was having alternating movements of her lower extremities, not consistent with tonic-clonic motor activity. IV Haldol/Benadryl. Stop moving, was able to complete her imaging studies. Lab data: White blood cell count 7900, hemoglobin 13.3, platelets adequate. Glucose 156. Renal function, serum CO2, electrolytes unremarkable. Liver functions normal. Troponin negative. CT head noncontrast, no acute changes. See radiology report. CT angiogram head and neck vessels, no thrombosis, no significant narrowing. See radiology report. Chest x-ray no aspiration or acute changes. See radiology report. On return from scanner patient no longer thrashing about with alternating movements, seems more calm and is cooperative, smiles, no facial droop. Further observe to let sedation wear off of further for, for disposition planning. Further observed through 0530, patient conversant cooperative. We would like to go home. We discussed the atypical shaking, no discharge antiseizure medications for now. Can follow up with Neurology for further evaluation as an outpatient. Recheck with PCP advised in this week. Discharged home. Discharge Plan Departure Patient Disposition: Home Clinical Impression: Episode of shaking Activity Restrictions/Additional Instructions: History of reported seizure, not taking antiseizure medications. Shaking activity today, initially was suspected to be tonic-clonic seizure-like activity, however some features of the shakiness were not typical of tonic- clonic legs seizure, and could be from some other cause of shakiness. CT brain study negative. Screening labs unremarkable. IV Keppra antiseizure medication was given, however features of the shakiness rate typical, no chronic Keppra for discharge at this time. Stable overnight. Follow up with your regular provider advised later this week. Continue your chronic medications as planned. Consider neurology consultation if there is any concerns about seizure disorder, as further studies might be prudent to consider pursuing as an outpatient if the not already been done, such as brain MRI imaging, such as EEG electrical analysis of the brain. Return earlier to this/nearest emergency department for any change worsening symptoms or any concerns prior. Prescriptions: No Action metformin 500 mg tablet 500 mg PO BID omeprazole 20 mg capsule,delayed release(DR/EC) 20 mg PO BID ferrous sulfate 325 mg (65 mg iron) tablet,delayed release (DR/EC) 325 mg PO Q OTHER DAY Rx Instructions: Wed and Fridays at night acetaminophen 500 mg/15 mL liquid 500 mg PO ONCE Referrals: Kate Morales ARNP [Primary Care Provider, Nursing] Stand Alone Forms: Patient Portal/API
[2025-03-05 20:30] LABS: Add Manual Diff / Slide Review NO; Hematocrit 40.1 % (36-46); Hemoglobin 13.3 g/dL (12.0-16.0); Lymphocytes Absolute Auto 3600 /uL (1100-4500); Mean Corpuscular HGB Conc 33.1 % (30-36); Mean Corpuscular Hemoglobin 28.1 PG (26-34); Mean Corpuscular Volume 85.1 fL (80-100); Platelet Count 247 X10^3/uL (150-400)
[2025-03-05 20:41] LABS: INR 0.9 (0.9-1.3); Prothrombin Time 10.5 SECONDS (9.4-12.5)
[2025-03-05 20:44] LABS: PTT Partial Thromboplastin Tim 32 SECONDS (25.1-36.5)
[2025-03-05 20:46] LABS: Alanine Aminotransferase 23 IU/L (<35); Albumin 4.9 g/dL (3.5-5.0); Albumin Globulin Ratio 1.4 (1.0-2.8); Alkaline Phosphatase 58 U/L (38-126); Blood Urea Nitrogen 9 mg/dL (7-17); Calcium 9.7 mg/dL (8.4-10.2); Carbon Dioxide 27 mmol/L (22-32); Chloride 101 mmol/L (98-107); Creatine Kinase 130 U/L (30-135); Estimated Glomerular Filt Rate > 60 mL/min (>60); Globulin 3.5 g/dL (1.7-4.1); Glucose 156 mg/dL (70-99); HEMOLYSIS < 15 (0-50); Potassium 4.4 mmol/L (3.4-5.1); Sodium 139 mmol/L (137-145); Total Protein 8.4 g/dL (6.3-8.2)
[2025-03-05] MEDS: HALOPERIDOL 5 MG/ML VIAL IV (20:52)
[2025-03-05 20:58] LABS: Troponin I < 0.012 ng/mL (0.01-0.034)
--- NOTE | 2025-03-05 21:40 | PC.NURSE ---
Pt's BP 88/51. Dr. Murray notified, bolus NS ordered, see MAR admin.
[2025-03-05] MEDS: SODIUM CHLORIDE 0.9% 1,000 ML 1000 ML IV (21:51)
[2025-03-05 23:22] LABS: Appearance Urine UA CLEAR; Bilirubin Urine UA NEGATIVE (NEGATIVE); Color Urine UA YELLOW; Glucose Urine UA NEGATIVE (Negative); Ketones Urine UA NEGATIVE (NEGATIVE); Leukocyte Esterase Urine UA NEGATIVE (NEGATIVE); Nitrite Urine UA NEGATIVE (Negative); Occult Blood Urine UA NEGATIVE (Negative); Protein Urine UA NEGATIVE (Negative); Specific Gravity Urine UA <=1.005 (1.000-1.035); Urobilinogen Urine UA 0.2 E.U./dL (0.2)
[2025-03-05 23:27] LABS: pH Urine UA 6.0 (4.5-8.0)
[2025-03-05 23:28] LABS: Culture Indicated Urine Cult Not Indicated; Ur Specific Gravity Normal (Normal)
[2025-03-05 23:29] LABS: UR Morphine/Opiate cutoff 300 Negative (Negative); Urine MDMA Negative (Negative); Urine Methamphetamines Negative (Negative); Urine Tetrahydrocannabinol Negative (Negative); Urine Tricyclic Antidepressant Negative (Negative)
[2025-03-06] VITALS (13 sets, daily range): BP systolic 90–124; BP diastolic 53–69; PULSE 64–84; RESP 14–18; O2SAT 93–97
--- NOTE | 2025-03-06 05:32 | PC.NURSE ---
Pt ambulated around nursing unit with a steady gait. Passed the swallow eval, able to keep 100ml fluids down. Dr. Murray aware. pt deemed safe for DC.
== END 2025-03-06 05:33 | disposition home or self-care (01) ==
PROVIDERS: Emergency Provider Emergency Medicine; PCP Nurse Practitioner Family
DX: R25.1 Tremor, unspecified (principal); H53.8 Other visual disturbances; R29.810 Facial weakness
CPT/HCPCS: 70450; 70496; 70498; 71045; 80053; 80305; 81001; 81003; 82550; 82962; 84484; 85025; 85610; 85730; 96361; 96365; 96375; 96376; 99285; J1630; J1953; J2405; J3360; Q9967

== ENCOUNTER 2025-04-14 22:49 | Emergency (ER) | payer OTHER, SELFPAY ==
[2025-04-14 23:02] VITALS: BP 123/78; PULSE 69; RESP 17; TEMP 36.1; O2SAT 97; BMI 33.2
[2025-04-15 01:57] VITALS: BP 139/72; PULSE 73; O2SAT 100
[2025-04-15 02:00] VITALS: BP 121/65; PULSE 64; RESP 16; O2SAT 99
[2025-04-15 03:54] LABS: Urine N gonorrhoeae NOT DETECTED
[2025-04-15 03:59] LABS: Urine Chlamydia NOT DETECTED
--- NOTE | 2025-04-15 04:30 | ED.FEMALEGU ---
HPI - Female Genitourinary General Chief complaint: Urogenital-Female Stated complaint: Possible uti Time Seen by Provider: 04/15/25 02:13 History of Present Illness HPI Narrative: 30-year-old female with history of diabetes, prior urine infection, has painful urination last couple of days, concerned she may have a early bladder infection. Denies vaginal itching, has some vaginal discharge, not currently taking any antibacterials or any antifungal treatments. Denies history of sexually transmitted infections, chlamydia, gonorrhea. No local trauma recalled. No vaginal bleeding. MD Complaint: dysuria Related Data Home Medications ?Medication ?Instructions ?Recorded ?Confirmed metformin 500 mg tablet 500 mg PO BID 02/05/25 04/14/25 omeprazole 20 mg capsule,delayed 20 mg PO BID 02/05/25 04/14/25 release vit no.95-ferrous 1 tab PO DAILY 04/14/25 04/14/25 fumarate 28 mg-folic acid 800 mcg tablet () Allergies Allergy/AdvReac Type Severity Reaction Status Date / Time hydrocodone Allergy Do not Verified 04/14/25 23:01 prescribe nickel Allergy Anaphylaxis Verified 04/14/25 23:01 lurasidone (From Latuda) AdvReac Hives Verified 04/14/25 23:01 Patient History tobacco type: cigarettes and vaping Last Alcoholic Drink: does not drink Exam Narrative Exam Narrative: GENERAL: Well-developed patient, in mild distress. HEAD: Atraumatic. Normocephalic. EYES: Pupils equal round and reactive. Extraocular motions intact. No scleral icterus. No injection or drainage. ENT: Nose without bleeding, purulent drainage. Airway patent. NECK: Trachea midline. Moves neck well. CARDIOVASCULAR: Regular rate and rhythm without murmurs, gallops, or rubs. RESPIRATORY: Clear to auscultation. Breath sounds equal bilaterally. No wheezes, rales, or rhonchi. GASTROINTESTINAL: Abdomen soft, non-tender, nondistended. Genitourinary: deferred, patient did not want to have any exam external or speculum at this time. EXTREMITIES: No edema or joint tenderness. BACK: Nontender without deformity or crepitance. No flank tenderness. NEURO: AOx3. Motor functions grossly nonfocal. SKIN: No rash or erythema of visible areas Initial Vital Signs Initial Vital Signs: Vital Signs Temperature 97 F L 04/14/25 23:02 Pulse Rate 69 09/13/25 23:02 Respiratory Rate 17 04/14/25 23:02 Blood Pressure 123/78 04/14/25 23:02 Pulse Oximetry 97 04/14/25 23:02 Oxygen Delivery Method Room Air 04/14/25 23:02 Course Orders Ordered: ED Orders 04/15/25 02:20 Chlamydia Gonorrhea PCR -URINE Stat Vital Signs Vital signs: Vital Signs - 8 hr 04/14/25 23:02 04/15/25 01:57 04/15/25 01:57 Temperature 97 F L Pulse Rate 69 73 Respiratory Rate 17 Blood Pressure 123/78 139/72 Pulse Oximetry 97 100 Oxygen Delivery Method Room Air 04/15/25 02:00 04/15/25 02:00 Temperature Pulse Rate 64 Respiratory Rate 16 Blood Pressure 121/65 Pulse Oximetry 99 Oxygen Delivery Method Room Air MDM - Female Genitourinary Lab Data Attestation: I reviewed the patient's lab results. Lab results narrative: Urine dip negative. Urine chlamydia and gonorrhea negative. Urine hCG negative. Labs: Lab Results 04/15/25 Range/Units 02:20 Ur Chlamydia DNA (PCR) Not detected N gonorrhoeae DNA (PCR) Not detected Point of Care Testing Test Results Negative Urine Dip Bedside Urine Glucose Negative Bedside Urine Bilirubin - Negative Bedside Urine Ketone - Negative Urine Specific [place] 1.030 Bedside Urine Occult Blood - Negative Bedside Urine pH 6.0 Bedside Urine Protein - Negative Bedside Urine Urobilinogen - Negative Bedside Urine Nitrite - Negative Bedside Urine Leukocytes - Negative Esterase MDM Narrative Medical decision making narrative: Diabetic female with dysuria and prior UTI, no current antibiotic or antifungal treatment, some vaginal discharge. Declined external perineal inspection and pelvic exam when suggested. UA negative, urine GC/chlamydia negative. Afebrile, no anterior abdominal tenderness, advanced imaging not indicated at this time. Could try empiric OTC vaginal antifungal, she might consider. FU with Search Specialist, given clinic contact info. Home with family. Discharge Plan Departure Patient Disposition: Home Clinical Impression: Dysuria Activity Restrictions/Additional Instructions: Painful urination, concern for possible urine infection. Urinalysis not convincing for any infection at this time. Urine gonorrhea and chlamydia PCR tests were also sent and/or also negative. It is possible to have painful urination from yeast vaginitis, a risk factor for diabetics. You could consider a trial of [id number] antifungal yeast vaginitis medication regimen. We discussed pelvic examination, declined for now. 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 Recheck with PCP or gynecology if symptoms are persisting in the next couple of days. Return to this/nearest emergency department for any change worsening symptoms or any concerns prior. Prescriptions: No Action metformin 500 mg tablet 500 mg PO BID omeprazole 20 mg capsule,delayed release(DR/EC) 20 mg PO BID PNV no.95-ferrous fumarate-FA [] 28 mg iron- 800 mcg tablet 1 tab PO DAILY Referrals: Kate Morales ARNP [Primary Care Provider, Nursing] Sandra Bautista DO [Physician, SPEECH PATHOLOGY TEACHER] Stand Alone Forms: Patient Portal/API
[2025-04-15 05:30] VITALS: PULSE 76; O2SAT 100
[2025-04-15 05:31] VITALS: BP 131/68; PULSE 77; O2SAT 100
[2025-04-15 05:36] VITALS: O2SAT 100
== END 2025-04-15 05:38 | disposition home or self-care (01) ==
PROVIDERS: Emergency Provider Emergency Medicine; PCP Nurse Practitioner Family
DX: R30.0 Dysuria (principal); Z87.440 Personal history of urinary (tract) infections
CPT/HCPCS: 81003; 81025; 87491; 87591; 99282

== ENCOUNTER → 2025-04-29 10:29 | Outpatient (CLI) | payer OTHER, SELFPAY ==
--- NOTE | 2025-04-29 10:30 | DI.MRI.S_ITS ---
PROCEDURE: MR CERVICAL SPINE WO CON INDICATIONS: MRI to assess for foraminal compression at the level of cerc TECHNIQUE: Noncontrast sagittal T1 spin echo and T2 fast spin echo, sagittal STIR, foraminal oblique sagittal T2 fast spin echo, and axial gradient echo or T2 fast spin echo through the cervical spine. COMPARISON: [facility], CR, XR CERVICAL SPINE 2V OR 3V, 04/24/2025, 8:26. FINDINGS: Image quality: Excellent. Alignment and Curvature: Loss of normal cervical lordosis. Bone Marrow: Marrow demonstrates normal overall signal. Mild reactive signal within the endplates adjacent to the C5-C6 intervertebral disc. Spinal Cord: Visualized spinal cord has normal size and signal. No cerebellar tonsillar herniation. Paraspinous Soft Tissues: No paravertebral masses. Prevertebral soft tissues are normal in thickness. C2-C3: Normal appearance. C3-C4: Normal appearance. C4-C5: Normal appearance. C5-C6: Mild disc desiccation and diffuse disc bulge with superimposed right posterolateral protrusion. Mild facet and uncovertebral hypertrophy. Moderate canal stenosis. Minimal right anterior cord flattening. Mild bilateral foraminal stenosis C6-C7: Mild disc desiccation and diffuse disc bulge. Mild canal stenosis. No foraminal stenosis C7-T1: Normal appearance. IMPRESSION: 1. Disc disease at C5-C6, causing moderate canal stenosis with minimal right cord flattening. Dictated by: Jaime Landeros M.D. on 04/30/2025 at 12:56 Approved by: Jaime Landeros M.D. on 04/30/2025 at 12:58
== END ==
PROVIDERS: Family Provider Nurse Practitioner Family; PCP Nurse Practitioner Family; Referring Provider Nurse Practitioner Family; Visit Provider Physician Assistant Surgical
DX: M50.122 Cervical disc disorder at C5-C6 level with radiculopathy (principal); M48.02 Spinal stenosis, cervical region; G56.23 Lesion of ulnar nerve, bilateral upper limbs
CPT/HCPCS: 72141

== ENCOUNTER → 2025-05-10 07:02 | Outpatient (CLI) | payer OTHER, SELFPAY ==
--- NOTE | 2025-05-10 07:04 | DI.MRI.S_ITS ---
PROCEDURE: MR LUMBAR SPINE WO CON INDICATIONS: lower back pain TECHNIQUE: Noncontrast sagittal T1 spin echo and T2 fast echo, sagittal STIR, and T2 fast spin echo through the lumbar spine. In cases with scoliosis, additional coronal T2 fast spin echo may be performed. COMPARISON: None. FINDINGS: Image quality: Excellent. Alignment and Curvature: Straightening of the normal lumbar lordosis. Bone Marrow: Marrow is of normal overall signal. No acute vertebral body compression fractures. Spinal Cord: Conus medullaris terminates at the L1-L2 level. Visualized cord demonstrates normal signal and size. Paraspinous Soft Tissues: No paravertebral masses. T12-L1: Normal appearance. L1-L2: Normal appearance. L2-L3: Normal appearance. L3-L4: Normal appearance. L4-L5: Normal appearance. L5-S1: Normal appearance. IMPRESSION: No significant degenerative changes. No central canal or neural foraminal stenosis. Dictated by: Adonis Recio M.D. on 05/10/2025 at 13:15 Approved by: Adonis Recio M.D. on 05/10/2025 at 13:16
== END ==
LOC: MRI 07:03
PROVIDERS: Family Provider Nurse Practitioner Family; PCP Family Medicine; Referring Provider Nurse Practitioner Family; Visit Provider Nurse Practitioner Family
DX: M54.50 Low back pain, unspecified (principal)
CPT/HCPCS: 72148

== ENCOUNTER → 2025-05-21 08:18 | Outpatient (CLI) | payer OTHER, SELFPAY | LOC: PHYS 08:18 | PROVIDERS: Family Provider Nurse Practitioner Family; PCP Family Medicine; Referring Provider Physician Assistant Surgical; Visit Provider Physician Assistant Surgical | DX: G56.23 Lesion of ulnar nerve, bilateral upper limbs (principal) | CPT/HCPCS: 95886; 95913 ==